=== PATIENT | male | born 1940 | race Caucasian/White ===

== ENCOUNTER 2017-03-04 07:30 | Inpatient (IN) | payer MEDICARE, BC ==
[~2017-03-04 07:30] MED LIST: Lactated Ringers 1,000 ML IV SCH; Lidocaine 1%/Sod Bicarbonate in NS 8.4% 1 ML Syringe IV PRN; Sodium Chloride 0.9% 10 ML Syringe FLUSH PRN
[2017-03-08] MEDS ORDERED: Sodium Chloride 0.9% 10 ML Syringe FLUSH PRN (00:01)
[2017-03-08] MEDS ORDERED: Lactated Ringers 1,000 ML IV SCH (00:01)
[2017-03-08] MEDS ORDERED: Lidocaine 1%/Sod Bicarbonate in NS 8.4% 1 ML Syringe IV PRN (00:01)
[2017-03-08] MEDS ORDERED: Morphine 2 MG/ML Syringe IVPUSH PRN (06:56)
[2017-03-08] MEDS ORDERED: diphenhydrAMINE 50 MG/ML SDV IVPUSH PRN (06:56)
[2017-03-08] MEDS ORDERED: Bisacodyl 5 MG Tab PO PRN (06:56)
[2017-03-08] MEDS ORDERED: Naloxone 0.4 MG/ML SDV IVPUSH PRN (06:56)
[2017-03-08] MEDS ORDERED: Ondansetron 4 MG/2 ML SDV IVPUSH PRN ×2 (06:56→15:26)
[2017-03-08] MEDS ORDERED: Sennosides 8.6 MG Tab PO PRN (06:56)
[2017-03-08] MEDS ORDERED: Docusate Sodium 100 MG Cap PO PRN (06:56)
[2017-03-08] MEDS ORDERED: Magnesium Hydroxide 400 MG/5 ML Susp 30 ML Cup PO PRN (06:56)
--- NOTE | 2017-03-08 12:26 | PCM.PREANE ---
Preanesthetic Assessment - Anesthesia/Transfusion/Family Hx Anesthesia History: Prior Anesthesia Without Reaction Family History of Anesthesia Reaction: No Transfusion History: No Prior Transfusion(s) - Review of Systems General: No Symptoms Pulmonary: No Symptoms Cardiovascular: No Symptoms Gastrointestinal: No Symptoms Neurological: Numbness (fingers carpal tunnel) Other: Reports: Diabetes (no meds boarderline) - Physical Assessment NPO Status Date: 03/07/17 NPO Status Time: 19:00 Pulse: 72 O2 Sat by Pulse Oximetry: 95 Respiratory Rate: 16 Blood Pressure: 150/70 Temperature: 36.7 C Vital Signs: Last Vital Signs Temp 36.7 C 03/08/17 10:45 Pulse 72 03/08/17 10:45 Resp 16 03/08/17 10:45 BP 150/70 H 03/08/17 10:45 Pulse Ox 95 03/08/17 10:45 Height: 1.63 m Weight: 70.987 kg ASA Class: 3 Mental Status: Alert & Oriented x3 Dentition: Reports: Dentures (lower), Missing Tooth/Teeth (top) Thyro-Mental Finger Breadths: 3 Mouth Opening Finger Breadths: 3 ROM/Head Extension: Limited/Partial (C2-7 2005 And L2-5 2008 And L1-2 2010 back surgery) Lungs: Clear to Auscultation, Normal Respiratory Effort Cardiovascular: Regular Rate, Regular Rhythm - Lab Values: on chart - Imaging/EKG Impressions: EKG Sinus Rhythm probable left atrial enlargement - Allergies Allergies/Adverse Reactions: Allergies Allergy/AdvReac Type Severity Reaction Status Date / Time doxycycline Allergy Edema Verified 03/08/17 11:34 Iodinated Contrast- Oral and Allergy Cannot Verified 03/08/17 11:34 IV Dye Remember Sulfa (Sulfonamide Allergy Rash Verified 03/08/17 11:34 Antibiotics) - Anesthesia Plan Pre-Op Medication Ordered: None - Acknowledgements Anesthesia Type Planned: Spinal Pt an Appropriate Candidate for the Planned Anesthesia: Yes Alternatives and Risks of Anesthesia Discussed w Pt/Guardian: Yes Pt/Guardian Understands and Agrees with Anesthesia Plan: Yes PreAnesthesia Questionnaire HEENT History: Reports: Cataract, Glaucoma Cardiovascular History: Reports: High Cholesterol, Hypertension, Other (See Below) Other Cardiovascular History: Mitral regurgitation, mitral stenosis, aortic valve sclerosis Respiratory History: Reports: COPD, Sleep Apnea Gastrointestinal History: Reports: GERD Genitourinary History: Reports: Chronic Renal Insuffiency, Other (See Below) Other Genitourinary History: CKD III, nocturia [employer]ER History: Reports: None Musculoskeletal History: Reports: Gout, Osteoarthritis, RA, Other (See Below) Other Musculoskeletal History: right hip pain Neurological History: Reports: None Psychiatric History: Reports: None Endocrine/Metabolic History: Reports: None Hematologic History: Reports: Anemia Immunologic History: Reports: None Oncologic (Cancer) History: Reports: None Dermatologic History: Reports: None - Past Surgical History HEENT Surgical History: Reports: Cataract Surgery, Naso-Sinus Surgery Cardiovascular Surgical History: Reports: None GI Surgical History: Reports: Other (See Below) Other GI Surgeries/Procedures: abdominal surgery Female Surgical History: Reports: None Male Surgical History: Reports: None Endocrine Surgical History: Reports: None Neurological Surgical History: Reports: C-Spine, Laminectomy, Other (See Below) Other Neurological Surgeries/Procedures: L1-L5 fusion, L2-L5 laminectomy, C2-C7 fusion Musculoskeletal Surgical History: Reports: Other (See Below) Other Musculoskeletal Surgeries/Procedures:: right total hip replacement Dermatological Surgical History: Reports: None - SUBSTANCE USE Smoking Status *Q: Former Smoker Second Hand Smoke Exposure: No Recreational Drug Use History: No - HOME MEDS Home Medications: Home Meds Acetaminophen/HYDROcodone [[place] 325-5 MG] 1 tab PO Q6H 03/05/17 [History] Allopurinol [Zyloprim] 100 mg PO DAILY 03/05/17 [History] Aspirin 81 mg PO DAILY 03/05/17 [History] Calcium Citrate/Vitamin D3 [Citracal + D Maximum Caplet] 2 tab PO DAILY [History] Diltiazem [Cardizem CD] 240 mg PO DAILY 03/05/17 [History] Ezetimibe [Zetia] 10 mg PO Q48H 03/05/17 [History] FLUoxetine [PROzac] 20 mg PO DAILY 03/05/17 [History] Furosemide [Lasix] 20 mg PO DAILY 03/05/17 [History] Krill Oil 500 mg PO DAILY 03/05/17 [History] Multivitamin [Zoo Chews] 1 tab PO DAILY 03/05/17 [History] Pantoprazole Sodium [Protonix] 40 mg PO DAILY 03/05/17 [History] Simvastatin [Zocor] 40 mg PO BEDTIME 03/05/17 [History] Tadalafil [Cialis] 10 mg PO ASDIRECTED PRN 03/05/17 [History] Tamsulosin HCl [Flomax] 0.4 mg PO TUFR 03/05/17 [History] Timolol [Betimol] 1 drop EYERT BEDTIME 03/05/17 [History] Tiotropium [Spiriva HandiHaler] 1 puff INH DAILY 03/05/17 [History] Ubidecarenone [Coq-10] 100 mg PO DAILY 03/05/17 [History] fentaNYL [Duragesic] 12 mcg TOP Q72H 03/05/17 [History] - CURRENT (IN HOUSE) MEDS Current Meds: Current Medications Bisacodyl (Dulcolax) 5 mg PO DAILY PRN PRN Reason: Constipation Diphenhydramine HCl (Benadryl) 25 mg IVPUSH Q4H PRN PRN Reason: Nausea Docusate Sodium (Colace) 100 mg PO BID PRN PRN Reason: Constipation Famotidine (Pepcid) 20 mg PO Q12H POLO Lactated Ringer's (Ringers, Lactated) 1,000 mls @ 125 mls/hr IV ASDIRECTED POLO Last Admin: 03/08/17 11:00 Dose: 125 mls/hr Cefazolin Sodium/Dextrose 2 gm (/ Premix) 50 mls @ 100 mls/hr IV Q8H [facility] Stop: 03/08/17 23:29 Lidocaine/Sodium Bicarbonate (Buffered Lidocaine 1% In Ns 8.4%) 0.25 ml IV ONETIME PRN PRN Reason: Prior to IV Start Last Admin: 03/08/17 10:59 Dose: 0.25 ml Magnesium Hydroxide (Milk Of Magnesia) 30 ml PO BID PRN PRN Reason: Constipation Morphine Sulfate (Morphine) 2 mg IVPUSH Q2H PRN PRN Reason: Breakthrough Pain Naloxone HCl (Narcan) 0.1 mg IVPUSH Q5M PRN PRN Reason: Oversedation Ondansetron HCl (Zofran) 4 mg IVPUSH Q6H PRN PRN Reason: Nausea/Vomiting Oxycodone/Acetaminophen (Percocet 325-5 Mg) 1 - 2 tab PO Q4H PRN PRN Reason: Pain Rivaroxaban (Xarelto) 10 mg PO DAILY [facility] Senna (Senna) 8.6 mg PO BID PRN PRN Reason: Constipation Sodium Chloride (Saline Flush) 10 ml FLUSH ASDIRECTED PRN PRN Reason: Keep Vein Open Discontinued Medications Morphine Sulfate 8 mg/Epinephrine HCl 0.3 mg/Cefuroxime Sodium 750 mg/Ketorolac Tromethamine 30 mg/Sodium Chloride 27.9 ml 0 mg .XX ONETIME ONE Stop: 03/08/17 11:46 Lactated Ringer's (Ringers, Lactated) 1,000 mls @ 125 mls/hr IV ASDIRECTED [facility] Lidocaine/Sodium Bicarbonate (Buffered Lidocaine 1% In Ns 8.4%) 0.25 ml IV ONETIME PRN PRN Reason: Prior to IV Start Sodium Chloride (Saline Flush) 10 ml FLUSH ASDIRECTED PRN PRN Reason: Keep Vein Open
[2017-03-08] MEDS ORDERED: Bupivacaine 0.25% 30 ML SDV ONE (12:30)
[2017-03-08] MEDS ORDERED: Iodine/Sodium Iodide 2% Tincture 30 ML Bottle ONE (12:30)
[2017-03-08] MEDS ORDERED: Vancomycin 1 GM SDV ONE (12:30)
[2017-03-08] MEDS ORDERED: ceFAZolin 1 GM Vial ONE ×2 (12:30→12:59)
[2017-03-08] MEDS ORDERED: fentaNYL 100 MCG/2 ML SDV ONE (12:58)
[2017-03-08] MEDS ORDERED: Ondansetron 4 MG/2 ML SDV ONE (12:58)
[2017-03-08] MEDS ORDERED: Propofol 200 MG/20 ML SDV ONE ×2 (12:58→14:41)
[2017-03-08] MEDS ORDERED: Lidocaine 1% 4 ML ONE (12:59)
[2017-03-08] MEDS ORDERED: FLU Vacc TS 2017-18 (65yr UP)/PF 180 MCG/0.5 ML Syringe IM ONE (13:00)
[2017-03-08] MEDS ORDERED: Morphine PF 10 MG/10 ML SDV ONE (13:32)
[2017-03-08] MEDS ORDERED: Lactated Ringers 1,000 ML ONE ×2 (13:56→15:16)
[2017-03-08] MEDS ORDERED: Phenylephrine 1% 10 MG/ML SDV ONE (14:31)
[2017-03-08] MEDS: Morphine 8 MG, EPINEPHrine 0.3 MG, Cefuroxime 750 MG, Ketorolac 30 MG, Sodium Chloride ... ONE ×10 (14:49→20:11)
[2017-03-08] MEDS ORDERED: HYDROmorphone 0.5 MG/0.5 ML Syringe IVPUSH PRN (15:26)
[2017-03-08] MEDS ORDERED: fentaNYL 100 MCG/2 ML SDV IVPUSH PRN (15:26)
--- NOTE | 2017-03-08 15:26 | PCM.POSTAN ---
POST ANESTHESIA ASSESSMENT - MENTAL STATUS Mental Status: Alert, Oriented - VITAL SIGNS Pulse Rate: 72 SaO2: 97 Resp Rate: 16 Blood Pressure: 93/63 Temperature: 36.2 C - RESPIRATORY Respiratory Status: Respiratory Rate WNL, Airway Patent, O2 Saturation Stable, Supplemental Oxygen - CARDIOVASCULAR CV Status: Pulse Rate WNL, Blood Pressure Stable - GASTROINTESTINAL GI Status: No Symptoms - PAIN Pain Score: 0 - POST OP HYDRATION Hydration Status: Adequate & Stable
[2017-03-08] MEDS ORDERED: fentaNYL 12 MCG/HR Transdermal Patch TOP SCH (15:30)
[2017-03-08] MEDS ORDERED: Ezetimibe 10 MG Tab PO SCH (15:30)
--- NOTE | 2017-03-08 17:19 | PCM.OPNOTE ---
- General Post-Op/Procedure Note Date of Surgery/Procedure: 03/08/17 Operative Procedure(s): left total hip arthroplasty Pre Op Diagnosis: left hip osteoarthrosis Post-Op Diagnosis: Same Anesthesia Technique: Local, MAC, Spinal Primary Surgeon: Naif Carvalho Anesthesia Provider: Martha So Commercial Account Officer: Uzma Lagos Commercial Account Officer: Elizabeth Morin EBL in mLs: 150 Complications: None Condition: Good Free Text/Narrative:: Intake & Output 03/08/17 03/08/17 03/08/17 06:59 14:59 22:59 Intake Total 100 Output Total 390 Balance -290 54 cup 42mdm 28+0 size 4 stem
--- NOTE | 2017-03-08 18:25 | PCM.CONS ---
H&P History of Present Illness - General Date of Service: 03/08/17 Admit Problem/Dx: Admission Diagnosis/Problem Admission Diagnosis/Problem Osteoarthritis of hip Source of Information: Patient, Family, Old Records, Provider, RN History Limitations: Reports: No Limitations - History of Present Illness Initial Comments - Free Text/Narative: Antonino Colunga is a 76 yo male pt. of Dr. Carvalho who was admitted today, post-op day 0, for left PETER. Hospitalist medicine was consulted for post-operative medical management. At this time the patient is resting comfortably and is pain free. He reports that his legs are both somewhat numb still. He denies any chest pain, shortness of breath, palpitations, nausea or vomiting. He carries a history of: abdominal bruit, anemia with a Hgb of 12.4 om clinic, COPD, GERD, glaucoma, gout, HLD, HTN, nocturia, mitral regurgitation, mitral stenosis, aortic valve sclerosis, CKD stage III with an eGFR of 38 in clinic, sleep apnea , osteoarthritis, RA, and multiple spinal fusions and laminectomies. He reports he has been a borderline diabetic and his A1c was 5.8 in clinic. He is a former smoker. He is a full code. His primary care provider is Dr. Laboy. Left Hip Pain Score (Numeric/FACES): 0 - Related Data Allergies/Adverse Reactions: Allergies Allergy/AdvReac Type Severity Reaction Status Date / Time doxycycline Allergy Edema Verified 03/08/17 11:34 Iodinated Contrast- Oral and Allergy Cannot Verified 03/08/17 11:34 IV Dye Remember Sulfa (Sulfonamide Allergy Rash Verified 03/08/17 11:34 Antibiotics) Home Medications: Home Meds Acetaminophen/HYDROcodone [[place] 325-5 MG] 1 tab PO Q6H 03/05/17 [History] Allopurinol [Zyloprim] 100 mg PO DAILY 03/05/17 [History] Aspirin 81 mg PO DAILY 03/05/17 [History] Calcium Citrate/Vitamin D3 [Citracal + D Maximum Caplet] 2 tab PO DAILY [History] Diltiazem [Cardizem CD] 240 mg PO DAILY 03/05/17 [History] Ezetimibe [Zetia] 10 mg PO Q48H 03/05/17 [History] FLUoxetine [PROzac] 20 mg PO DAILY 03/05/17 [History] Furosemide [Lasix] 20 mg PO DAILY 03/05/17 [History] Krill Oil 500 mg PO DAILY 03/05/17 [History] Multivitamin [Zoo Chews] 1 tab PO DAILY 03/05/17 [History] Pantoprazole Sodium [Protonix] 40 mg PO DAILY 03/05/17 [History] Simvastatin [Zocor] 40 mg PO BEDTIME 03/05/17 [History] Tadalafil [Cialis] 10 mg PO ASDIRECTED PRN 03/05/17 [History] Tamsulosin HCl [Flomax] 0.4 mg PO TUFR 03/05/17 [History] Timolol [Betimol] 1 drop EARRT DAILY 03/05/17 [History] Tiotropium [Spiriva HandiHaler] 1 puff INH DAILY 03/05/17 [History] Ubidecarenone [Coq-10] 100 mg PO DAILY 03/05/17 [History] fentaNYL [Duragesic] 12 mcg TOP Q72H 03/05/17 [History] Past Medical History HEENT History: Reports: Cataract, Glaucoma Cardiovascular History: Reports: High Cholesterol, Hypertension, Other (See Below) Other Cardiovascular History: Mitral regurgitation, mitral stenosis, aortic valve sclerosis Respiratory History: Reports: COPD, Sleep Apnea Gastrointestinal History: Reports: GERD Genitourinary History: Reports: Chronic Renal Insuffiency, Other (See Below) Other Genitourinary History: CKD III, nocturia [employer] History: Reports: None Musculoskeletal History: Reports: Gout, Osteoarthritis, RA, Other (See Below) Other Musculoskeletal History: right hip pain Neurological History: Reports: None Psychiatric History: Reports: None Endocrine/Metabolic History: Reports: None Hematologic History: Reports: Anemia Immunologic History: Reports: None Oncologic (Cancer) History: Reports: None Dermatologic History: Reports: None - Past Surgical History HEENT Surgical History: Reports: Cataract Surgery, Naso-Sinus Surgery Cardiovascular Surgical History: Reports: None GI Surgical History: Reports: Other (See Below) Other GI Surgeries/Procedures: abdominal surgery Female Surgical History: Reports: None Male Surgical History: Reports: None Endocrine Surgical History: Reports: None Neurological Surgical History: Reports: C-Spine, Laminectomy, Other (See Below) Other Neurological Surgeries/Procedures: L1-L5 fusion, L2-L5 laminectomy, C2-C7 fusion Musculoskeletal Surgical History: Reports: Other (See Below) Other Musculoskeletal Surgeries/Procedures:: right total hip replacement Dermatological Surgical History: Reports: None Social & Family History - Tobacco Use Smoking Status *Q: Former Smoker Used Tobacco, but Quit: No Month Tobacco Last Used: 1979 Second Hand Smoke Exposure: No - Caffeine Use Caffeine Use: Reports: Coffee - Alcohol Use Days Per Week of Alcohol Use: 4 Number of Drinks Per Day: 2 Total Drinks Per Week: 8 - Recreational Drug Use Recreational Drug Use: No H&P Review of Systems - Review of Systems: Review Of Systems: See Below General: Reports: No Symptoms HEENT: Reports: No Symptoms Pulmonary: Reports: No Symptoms Cardiovascular: Reports: No Symptoms Gastrointestinal: Reports: No Symptoms Genitourinary: Reports: No Symptoms Musculoskeletal: Reports: Hand Pain (Bilateral - chronic ), Leg Pain (left hip with movement ). Denies: Neck Pain, Shoulder Pain, Arm Pain, Back Pain Skin: Reports: No Symptoms Psychiatric: Reports: No Symptoms Neurological: Reports: Numbness (feet ), Tingling (feet). Denies: Confusion, Dizziness, Headache Hematologic/Lymphatic: Reports: Anemia (Chronic ) Immunologic: Reports: No Symptoms Exam - Exam Exam: See Below - Vital Signs Vital Signs: Last Vital Signs Temp 97.7 F 03/08/17 16:00 Pulse 72 03/08/17 15:26 Resp 15 03/08/17 16:15 BP 134/72 03/08/17 16:15 Pulse Ox 98 03/08/17 16:40 Weight: 156 lb 8 oz - Exam Quality Assessment: Supplemental Oxygen, DVT Prophylaxis General: Alert, Oriented, Cooperative HEENT: Conjunctiva Clear, EACs Clear, Hearing Intact, Mucosa Moist & [place], Nares Patent, Posterior Pharynx Clear, Pupils Equal, Pupils Reactive Neck: Supple, Trachea Midline. No: JVD Lungs: Clear to Auscultation, Normal Respiratory Effort Cardiovascular: Regular Rate, Regular Rhythm GI/Abdominal Exam: Normal Bowel Sounds, Soft, Non-Tender, No Organomegaly, No Distention, No Mass, Pelvis Stable (Male) Exam: Deferred Rectal (Males) Exam: Deferred Back Exam: Normal Inspection, Decreased Range of Motion Extremities: No Pedal Edema, Normal Capillary Refill, Other Peripheral Pulses: 1+: Posterior Tibial (L), Posterior Tibial (R), Dorsalis Pedis (L), Dorsalis Pedis (R), 2+: Radial (L), Radial (R) Skin: Warm, Dry, Intact Neurological: Cranial Nerves Intact (grossly ) Neuro Extensive - Mental Status: Alert, Oriented x3, Normal Mood/Affect, Normal Cognition, Memory Intact Neuro Extensive - Motor, Sensory, Reflexes: CN II-XII Intact (grossly ) Psychiatric: Alert, Normal Affect, Normal Mood Physical Exam Comments:: patient examined while lying in bed. He is on 1 L via nasal cannula with good saturation. Vital signs have been stable. - Patient Data Lab Results Last 24 hrs: Laboratory Results - last 24 hr 03/08/17 Range/Units 12:34 Blood Type A NEGATIVE Gel Antibody Screen Negative Consult PN Assessment/Plan POD#: 0 Procedures: Procedures DXA BONE DENSITY AXIAL (02/22/17) MR-STAPH DNA AMP PROBE (02/19/17) MRI JOINT UPR EXTREM W/DYE (02/08/14) NEEDLE LOCALIZATION BY XRAY (02/08/14) URINE CULTURE/COLONY COUNT (01/24/15) (1) S/P total hip arthroplasty SNOMED Code(s): 841022577245 Code(s): Z96.649 - PRESENCE OF UNSPECIFIED ARTIFICIAL HIP JOINT Priority: High Current Visit: Yes Qualifiers: Laterality: left Qualified Code(s): Z96.642 - Presence of left artificial hip joint (2) Abdominal bruit SNOMED Code(s): 005492289 Code(s): R09.89 - OTH SYMPTOMS AND SIGNS INVOLVING THE CIRC AND RESP SYSTEMS Priority: Low Current Visit: Yes (3) Anemia SNOMED Code(s): 413707173 Code(s): D64.9 - ANEMIA, UNSPECIFIED Priority: Low Current Visit: Yes Qualifiers: Anemia type: unspecified type Qualified Code(s): D64.9 - Anemia, unspecified (4) Nocturia SNOMED Code(s): 475299404 Code(s): R35.1 - NOCTURIA Priority: Low Current Visit: Yes (5) COPD (chronic obstructive pulmonary disease) SNOMED Code(s): 15435330 Code(s): J44.9 - CHRONIC OBSTRUCTIVE PULMONARY DISEASE, UNSPECIFIED Priority: Low Current Visit: Yes Qualifiers: COPD type: unspecified COPD Qualified Code(s): J44.9 - Chronic obstructive pulmonary disease, unspecified (6) GERD (gastroesophageal reflux disease) SNOMED Code(s): 540681851 Code(s): K21.9 - GASTRO-ESOPHAGEAL REFLUX DISEASE WITHOUT ESOPHAGITIS Priority: Low Current Visit: Yes Qualifiers: Esophagitis presence: esophagitis presence not specified Qualified Code(s) : K21.9 - Gastro-esophageal reflux disease without esophagitis (7) Glaucoma SNOMED Code(s): 93506176 Code(s): H40.9 - UNSPECIFIED GLAUCOMA Priority: Low Current Visit: No Qualifiers: Glaucoma type: unspecified Laterality: unspecified laterality Qualified Code(s): H40.9 - Unspecified glaucoma (8) Gout SNOMED Code(s): 84305939 Code(s): M10.9 - GOUT, UNSPECIFIED Priority: Low Current Visit: No Qualifiers: Gout site: unspecified site Gout etiology: unspecified cause Chronicity: unspecified Qualified Code(s): M10.9 - Gout, unspecified (9) HLD (hyperlipidemia) SNOMED Code(s): 34336623 Code(s): E78.5 - HYPERLIPIDEMIA, UNSPECIFIED Priority: Low Current Visit : No Qualifiers: Hyperlipidemia type: pure hypercholesterolemia Qualified Code(s): E78.00 - Pure hypercholesterolemia, unspecified; E78.0 - Pure hypercholesterolemia (10) HTN (hypertension) SNOMED Code(s): 02216584 Code(s): I10 - ESSENTIAL (PRIMARY) HYPERTENSION Priority: Medium Current Visit: Yes Qualifiers: Hypertension type: essential hypertension Qualified Code(s): I10 - Essential (primary) hypertension (11) CKD (chronic kidney disease) stage 3, GFR 30-59 ml/min SNOMED Code(s): 548029276 Code(s): N18.3 - CHRONIC KIDNEY DISEASE, STAGE 3 (MODERATE) Priority: Medium Current Visit: Yes (12) Mitral regurgitation SNOMED Code(s): 00678924 Code(s): I34.0 - NONRHEUMATIC MITRAL (VALVE) INSUFFICIENCY Priority: Low Current Visit: Yes Qualifiers: Cardiac valve disease etiology: etiology unspecified Qualified Code(s): I34.0 - Nonrheumatic mitral (valve) insufficiency (13) Mitral stenosis SNOMED Code(s): 87777624 Code(s): I05.0 - RHEUMATIC MITRAL STENOSIS Priority: Low Current Visit: Yes Qualifiers: Cardiac valve disease etiology: etiology unspecified Qualified Code(s): I05.0 - Rheumatic mitral stenosis (14) Aortic valve sclerosis SNOMED Code(s): 97572390 Code(s): I35.8 - OTHER NONRHEUMATIC AORTIC VALVE DISORDERS Priority: Low Current Visit: Yes Problem List Initiated/Reviewed/Updated: Yes Plan: I/P: Acute: S/P left PETER post-operative day 0 -DVT and pain management per primary team -IS/RT -PT/OT -Monitor oxygen saturations -O2 as needed -Vital signs stable Osteoarthritis of the hip -Pain management as above Chronic: abdominal bruit anemia with a Hgb of 12.4 in clinic COPD GERD glaucoma gout HLD HTN nocturia mitral regurgitation mitral stenosis aortic valve sclerosis CKD stage III with an eGFR of 38 in clinic sleep apnea osteoarthritis RA multiple spinal fusions multiple laminectomies Plan: CM/SW for discharge planning Other orders as listed above GI prophylaxis Home medications as indicated Routine AM labs He is a full code. His PCP is Dr. Laboy Thank you for allowing us to participate in the care of this patient! Requesting Provider: Dr. Carvalho Date Consult Requested: 03/08/17 Reason for Consult: Post-operative medical management Patient History Reviewed: Yes Admission H&P Reviewed: Yes Time Spent (in minutes): 45
--- NOTE | 2017-03-08 19:37 | CR ---
Pelvis and left hip: AP view of the pelvis was obtained as well as lateral view of the left hip. Comparison: No previous hip or pelvis study. Previous lumbar spine surgery is partially visualized. Bilateral hip prosthesis are noted which on the left side has been recently placed. Slight vacuum phenomena is seen within the left sacroiliac joint. Mild joint space narrowing is seen within the right sacroiliac joint. Underlying bony structures are intact. Prosthesis appear aligned. Impression: 1. Satisfactory appearance of a recently placed left hip prosthesis. 2. Other incidental findings as noted above. Diagnostic code #2
[2017-03-08] MEDS: Acetaminophen/oxyCODONE 325-5 MG Tab PO PRN (20:40)
[2017-03-08] MEDS ORDERED: Famotidine 20 MG Tab PO SCH (21:00)
[2017-03-08] MEDS ORDERED: Simvastatin 40 MG Tab PO SCH (21:00)
[2017-03-08] MEDS: ceFAZolin 2 GM in Premix Bag 1 BAG IV SCH (22:47)
[2017-03-09] MEDS: ceFAZolin 2 GM in Premix Bag 1 BAG IV SCH ×2 (05:28→12:30)
[2017-03-09] MEDS: Acetaminophen/oxyCODONE 325-5 MG Tab PO PRN ×3 (05:55→15:17)
[2017-03-09] MEDS ORDERED: Tiotropium Inhaler 18 MCG Inhalation Powder Cap Kit of 5 INH SCH (08:00)
[2017-03-09] MEDS ORDERED: Enoxaparin 30 MG/0.3 ML Syringe SUBCUT SCH (09:00)
[2017-03-09] MEDS ORDERED: Rivaroxaban 10 MG Tab PO SCH (09:00)
[2017-03-09] MEDS ORDERED: Ezetimibe 10 MG Tab PO SCH (09:00)
[2017-03-09] MEDS ORDERED: Allopurinol 100 MG Tab PO SCH (09:00)
[2017-03-09] MEDS ORDERED: Aspirin 81 MG Tab.Chew PO SCH (09:00)
[2017-03-09] MEDS ORDERED: Pantoprazole 40 MG Tab.CR PO SCH (09:00)
[2017-03-09] MEDS ORDERED: Furosemide 20 MG Tab PO SCH (09:00)
[2017-03-09] MEDS ORDERED: Tamsulosin 0.4 MG Cap.ER PO SCH (09:00)
[2017-03-09] MEDS ORDERED: Famotidine 20 MG Tab PO SCH (09:00)
[2017-03-09] MEDS ORDERED: FLUoxetine 20 MG Cap PO SCH (09:00)
[2017-03-09] MEDS ORDERED: Calcium Carbonate/Vitamin D3 1500 MG-200 Units Tab PO SCH (09:00)
[2017-03-09] MEDS ORDERED: Diltiazem 240 MG Cap.ER PO SCH (09:00)
--- NOTE | 2017-03-09 09:52 | PCM48HPAN ---
Post Anesthesia Note - EVALUATION WITHIN 48HRS OF ANESTHETIC Vital Signs in Normal Range: Yes Patient Participated in Evaluation: Yes Respiratory Function Stable: Yes Airway Patent: Yes Cardiovascular Function Stable: Yes Hydration Status Stable: Yes Pain Control Satisfactory: Yes Nausea and Vomiting Control Satisfactory: Yes Mental Status Recovered: Yes - COMMENTS/OBSERVATIONS Free Text/Narrative:: Up walking today. Denies headache. Denies back pain. Denies numbness and/or tingling in her legs. Voiding without problem. No further questions at this time. No complications noted.
--- NOTE | 2017-03-09 15:09 | PCM.CONSN ---
- General Info Date of Service: 03/09/17 Admission Dx/Problem (Free Text): Admission Diagnosis/Problem Admission Diagnosis/Problem Osteoarthritis of hip Subjective Update: Follow Up Functional Status: Reports: Pain Controlled, Tolerating Diet, Ambulating, Urinating. Denies: New Symptoms - Review of Systems General: Denies: Fever, Weakness, Fatigue, Malaise, Chills HEENT: Reports: No Symptoms Pulmonary: Denies: Shortness of Breath Cardiovascular: Denies: Chest Pain Gastrointestinal: Denies: Abdominal Pain, Nausea, Vomiting Genitourinary: Reports: No Symptoms Musculoskeletal: Reports: No Symptoms Skin: Reports: No Symptoms Neurological: Reports: Gait Disturbance. Denies: Confusion, Difficulty Walking , Weakness Psychiatric: Denies: Depression, Anxiety, Agitation, Hallucinations Systems Review Comment:: No significant overnight or acute issues. His Pain is controlled. He has no new complaints. - Patient Data Vitals - Most Recent: Last Vital Signs Temp 36.9 C 03/09/17 12:29 Pulse 103 H 03/09/17 12:29 Resp 20 03/09/17 12:29 BP 146/67 H 03/09/17 12:29 Pulse Ox 92 L 03/09/17 12:29 Weight - Most Recent: 70.987 kg I&O - Last 24 Hours: Intake & Output 03/09/17 03/09/17 03/09/17 06:59 14:59 22:59 Intake Total 600 120 Balance 600 120 Lab Results Last 24 Hours: Laboratory Results - last 24 hr 03/09/17 03/09/17 Range/Units 05:45 05:45 WBC 10.61 H (4.23-9.07) K/mm3 RBC 3.44 L (4.63-6.08) M/mm3 Hgb 10.5 L (13.7-17.5) gm/L Hct 32.6 L (40.1-51.0) % MCV 94.8 H (79.0-92.2) fl MCH 30.5 (25.7-32.2) pg MCHC 32.2 (32.2-35.5) g/dl RDW Std Deviation 43.5 (35.1-43.9) fL Plt Count 210 (163-337) K/mm3 MPV 10.4 (9.4-12.3) fl Sodium 138 (136-145) mEq/L Potassium 5.3 H (3.5-5.1) mEq/L Chloride 102 (98-107) mEq/L Carbon Dioxide 27 (21-32) mEq/L Anion Gap 14.3 (5-15) BUN 33 H (7-18) mg/dL Creatinine 2.5 H (0.7-1.3) mg/dL Est Cr Clr Drug Dosing 21.05 mL/min Estimated GFR (MDRD) 25 (>60) mL/min BUN/Creatinine Ratio 13.2 L (14-18) Glucose 135 H (83-115) mg/dL Calcium 8.6 (8.5-10.1) mg/dL Total Bilirubin 0.3 (0.2-1.0) mg/dL AST 24 (15-37) U/L ALT 16 (16-63) U/L Alkaline Phosphatase 91 (46-116) U/L Total Protein 6.4 (6.4-8.2) g/dl Albumin 3.2 L (3.4-5.0) g/dl Globulin 3.2 gm/dL Albumin/Globulin Ratio 1.0 (1-2) Med Orders - Current: Current Medications Allopurinol (Zyloprim) 100 mg PO DAILY [facility] Last Admin: 03/09/17 08:55 Dose: 100 mg Aspirin (Aspirin) 81 mg PO DAILY [facility] Last Admin: 03/09/17 08:54 Dose: 81 mg Bisacodyl (Dulcolax) 5 mg PO DAILY PRN PRN Reason: Constipation Calcium Carbonate (Calcium Carbonate/Vitamin D 1500 Mg-200 Unit) 2 tab PO DAILY [facility] Last Admin: 03/09/17 08:55 Dose: 2 tab Diltiazem HCl (Dilacor Xr) 240 mg PO DAILY [facility] Last Admin: 03/09/17 08:55 Dose: 240 mg Diphenhydramine HCl (Benadryl) 25 mg IVPUSH Q4H PRN PRN Reason: Nausea Docusate Sodium (Colace) 100 mg PO BID PRN PRN Reason: Constipation Ezetimibe (Zetia) 10 mg PO Q48H [facility] Enoxaparin Sodium (Lovenox) 30 mg SUBCUT DAILY [facility] Fentanyl (Duragesic) 12 mcg TOP Q72H [facility] Fluoxetine HCl (Prozac) 20 mg PO DAILY [facility] Last Admin: 03/09/17 08:54 Dose: 20 mg Furosemide (Lasix) 20 mg PO DAILY [facility] Last Admin: 03/09/17 08:55 Dose: 20 mg Lactated Ringer's (Ringers, Lactated) 1,000 mls @ 125 mls/hr IV ASDIRECTED [facility] Last Admin: 03/08/17 11:00 Dose: 125 mls/hr Latanoprost (Xalatan 0.005% Ophth Soln) 0 ml EYERT BEDTIME POLO Magnesium Hydroxide (Milk Of Magnesia) 30 ml PO BID PRN PRN Reason: Constipation Morphine Sulfate (Morphine) 2 mg IVPUSH Q2H PRN PRN Reason: Breakthrough Pain Naloxone HCl (Narcan) 0.1 mg IVPUSH Q5M PRN PRN Reason: Oversedation Ondansetron HCl (Zofran) 4 mg IVPUSH Q6H PRN PRN Reason: Nausea/Vomiting Oxycodone/Acetaminophen (Percocet 325-5 Mg) 1 - 2 tab PO Q4H PRN PRN Reason: Pain Last Admin: 03/09/17 09:44 Dose: 2 tab Pantoprazole Sodium (Protonix) 40 mg PO DAILY [facility] Last Admin: 03/09/17 09:05 Dose: Not Given Ubidecarenone 100 Mg 0 each PO DAILY [facility] Last Admin: 03/09/17 09:06 Dose: Not Given Senna (Senna) 8.6 mg PO BID PRN PRN Reason: Constipation Simvastatin (Zocor) 40 mg PO BEDTIME [facility] Last Admin: 03/08/17 20:40 Dose: 40 mg Sodium Chloride (Saline Flush) 10 ml FLUSH ASDIRECTED PRN PRN Reason: Keep Vein Open Tamsulosin HCl (Flomax) 0.4 mg PO TuFr@0900 [facility] Last Admin: 03/09/17 08:54 Dose: 0.4 mg Timolol Maleate (Timoptic 0.5% Ophth Soln) 0 ml EYERT BEDTIME POLO Tiotropium [place] (Spiriva Handihaler) 18 mcg INH DAILYRT [facility] Last Admin: 03/09/17 08:39 Dose: 1 puff Discontinued Medications Bupivacaine HCl (Marcaine 0.25%) Confirm Administered Dose 30 ml .ROUTE .[facility] ONE Stop: 03/08/17 12:31 Last Admin: 03/08/17 14:51 Dose: 30 ml Cefazolin Sodium (Ancef) Confirm Administered Dose 2 gm .ROUTE .STK-MED ONE Stop: 03/08/17 12:31 Cefazolin Sodium (Ancef) Confirm Administered Dose 2 gm .ROUTE .[facility] ONE Stop: 03/08/17 13:00 Last Admin: 03/08/17 14:44 Dose: 2 gm Morphine Sulfate 8 mg/Epinephrine HCl 0.3 mg/Cefuroxime Sodium 750 mg/Ketorolac Tromethamine 30 mg/Sodium Chloride 27.9 ml 0 mg .XX ONETIME ONE Stop: 03/08/17 11:46 Last Admin: 03/08/17 20:11 Dose: Not Given Ezetimibe (Zetia) 10 mg PO Q48H [facility] Famotidine (Pepcid) 20 mg PO Q12H [facility] Last Admin: 03/08/17 20:40 Dose: 20 mg Famotidine (Pepcid) 20 mg PO DAILY [facility] Last Admin: 03/09/17 08:54 Dose: 20 mg Fentanyl (Sublimaze) Confirm Administered Dose 100 mcg .ROUTE .[facility] Stop: 03/08/17 12:59 Fentanyl (Duragesic) 12 mcg TOP Q72H [facility] Fentanyl (Sublimaze) 50 mcg IVPUSH Q5M PRN PRN Reason: pain Hydromorphone HCl (Dilaudid) 0.5 mg IVPUSH Q15M PRN PRN Reason: Pain (severe 7-10) Lactated Ringer's (Ringers, Lactated) 1,000 mls @ 125 mls/hr IV ASDIRECTED [facility] Cefazolin Sodium/Dextrose 2 gm (/ Premix) 50 mls @ 100 mls/hr IV Q8H [facility] Stop: 03/09/17 12:59 Last Admin: 03/09/17 05:28 Dose: 100 mls/hr Lidocaine HCl (Xylocaine-Mpf 1%) Confirm Administered Dose 4 mls @ as directed .ROUTE .[facility] ONE Stop: 03/08/17 13:00 Lactated Ringer's (Ringers, Lactated) Confirm Administered Dose 1,000 mls @ as directed .ROUTE .[facility] ONE Stop: 03/08/17 13:57 Lactated Ringer's (Ringers, Lactated) Confirm Administered Dose 1,000 mls @ as directed .ROUTE .[facility]-MED ONE Stop: 03/08/17 15:17 Influenza Virus Vaccine (Pharmacy To Dose - Influenza Vaccine) 1 each IM ONETIME ONE Stop: 03/08/17 12:45 Last Admin: 03/08/17 17:15 Dose: Not Given Influenza Virus Vaccine (Fluzone High-Dose 2016-) 180 mcg IM .ONCE ONE Stop: 03/08/17 13:01 Last Admin: 03/08/17 17:15 Dose: Not Given Iodine (Iodine 2% Mild Tincture) Confirm Administered Dose 30 ml .ROUTE .STK- MED ONE Stop: 03/08/17 12:31 Last Admin: 03/08/17 14:40 Dose: 18 ml Lidocaine/Sodium Bicarbonate (Buffered Lidocaine 1% In Ns 8.4%) 0.25 ml IV ONETIME PRN PRN Reason: Prior to IV Start Lidocaine/Sodium Bicarbonate (Buffered Lidocaine 1% In Ns 8.4%) 0.25 ml IV ONETIME PRN PRN Reason: Prior to IV Start Last Admin: 03/08/17 10:59 Dose: 0.25 ml Morphine Sulfate (Duramorph Pf) Confirm Administered Dose 10 mg .ROUTE .STK-MED ONE Stop: 03/08/17 13:33 Ondansetron HCl (Zofran) Confirm Administered Dose 4 mg .ROUTE .STK-MED ONE Stop: 03/08/17 12:59 Ondansetron HCl (Zofran) 4 mg IVPUSH ONETIME PRN PRN Reason: Nausea/Vomiting Phenylephrine HCl (Elias-Synephrine) Confirm Administered Dose 10 mg .ROUTE .STK- MED ONE Stop: 03/08/17 14:32 Propofol (Diprivan 20 Ml) Confirm Administered Dose 200 mg .ROUTE .STK-MED ONE Stop: 03/08/17 12:59 Propofol (Diprivan 20 Ml) Confirm Administered Dose 200 mg .ROUTE .STK-MED ONE Stop: 03/08/17 14:42 Rivaroxaban (Xarelto) 10 mg PO DAILY [facility] Sodium Chloride (Saline Flush) 10 ml FLUSH ASDIRECTED PRN PRN Reason: Keep Vein Open Tranexamic Acid (Cyklokapron) Confirm Administered Dose 1,000 mg .ROUTE .STK- MED ONE Stop: 03/08/17 12:31 Last Admin: 03/08/17 14:52 Dose: 1,000 mg Vancomycin HCl (Vancomycin) Confirm Administered Dose 1 gm .ROUTE .K-MED ONE Stop: 03/08/17 12:31 Last Admin: 03/08/17 14:54 Dose: 1 gm - Exam Quality Assessment: Supplemental Oxygen General: Alert, Oriented, Cooperative, No Acute Distress HEENT: Pupils Equal, Pupils Reactive, EOMI, Mucous Membr. Moist/[place] Neck: Supple, Trachea Midline, No Thyromegaly Lungs: Clear to Auscultation, Normal Respiratory Effort Cardiovascular: Regular Rate, Regular Rhythm GI/Abdominal Exam: Normal Bowel Sounds, Soft, No Organomegaly, No Distention (Male) Exam: Deferred Back Exam: Normal Inspection, Decreased Range of Motion Extremities: Normal Inspection, Non-Tender, No Pedal Edema, Normal Capillary Refill, Limited Range of Motion Peripheral Pulses: 2+: Dorsalis Pedis (L), Dorsalis Pedis (R) Skin: Warm, Dry, Intact Neurological: No New Focal Deficit Psy/Mental Status: Alert, Normal Affect, Normal Mood Consult PN Assessment/Plan POD#: 1 Procedures: Procedures DXA BONE DENSITY AXIAL (02/22/17) MR-STAPH DNA AMP PROBE (02/19/17) MRI JOINT UPR EXTREM W/DYE (02/08/14) NEEDLE LOCALIZATION BY XRAY (02/08/14) URINE CULTURE/COLONY COUNT (01/24/15) Problem List Initiated/Reviewed/Updated: Yes My Orders Last 24 Hours: My Active Orders 03/09/17 09:00 Ezetimibe [Zetia] 10 mg PO Q48H 03/09/17 21:00 Latanoprost [Xalatan 0.005% Ophth Soln] 0 ml EYERT BEDTIME 03/11/17 07:00 fentaNYL [Duragesic] 12 mcg TOP Q72H Plan: Assessment/Plan: Acute: S/P left PETER post-operative day 1 - DVT and pain management per primary team - Continue IS/RT/PT/OT - Monitor oxygen saturations - O2 as needed - Vital signs stable Osteoarthritis of the hip - Pain management as above Chronic: abdominal bruit anemia with a Hgb of 12.4 in clinic COPD GERD glaucoma gout HLD HTN nocturia mitral regurgitation mitral stenosis aortic valve sclerosis CKD stage III with an eGFR of 38 in clinic sleep apnea osteoarthritis RA multiple spinal fusions multiple laminectomies Plan: Patient is clinically stable CM/SW for discharge planning Other orders as listed above GI prophylaxis Home medications as indicated Routine AM labs He is a full code. His PCP is Dr. Laboy From Hospitalist stand point, patient is doing relatively well. We have no additional recommendations but to continue current treatment. We are now signing off his case, please feel free to re-consult us if your still need further help. Again, thank you for allowing us to participate in the management of this patient.
[2017-03-09] MEDS ORDERED: Pneumococcal 13-Valent Conjugate Vaccine 0.5 ML Syringe IM ONE (15:33)
[2017-03-09] MEDS ORDERED: FLU Vacc TS 2017-18 (65yr UP)/PF 180 MCG/0.5 ML Syringe IM ONE (16:12)
[2017-03-09] MEDS ORDERED: Non-Formulary Medication 1 Each (Travoprost [Travatan Z] 1 DROP) EYERT SCH (21:00)
[2017-03-09] MEDS ORDERED: Latanoprost 0.005% Ophth Soln 2.5 ML Bottle EYERT SCH (21:00)
[2017-03-09] MEDS ORDERED: Timolol Maleate 0.5% Ophth Soln 5 ML Bottle EYERT SCH (21:00)
--- NOTE | 2017-03-10 10:23 | PCM.SURGPN ---
- General Info Date of Service: 03/09/17 POD#: 1 Functional Status: Reports: Pain Controlled, Tolerating Diet, Ambulating, Urinating, Incentive Spirometry - Review of Systems Musculoskeletal: Reports: Other (The pt feels prepared for discharge to home with his .) - Patient Data Vitals - Most Recent: Last Vital Signs Temp 98.4 F 03/09/17 12:29 Pulse 103 H 03/09/17 12:29 Resp 20 03/09/17 12:29 BP 146/67 H 03/09/17 12:29 Pulse Ox 92 L 03/09/17 12:29 Weight - Most Recent: 156 lb 8 oz I&O - Last 24 Hours: Intake & Output 03/09/17 03/10/17 03/10/17 22:59 06:59 14:59 Intake Total 210 Balance 210 Med Orders - Current: Current Medications Discontinued Medications Allopurinol (Zyloprim) 100 mg PO DAILY [facility] Last Admin: 03/09/17 08:55 Dose: 100 mg Aspirin (Aspirin) 81 mg PO DAILY [facility] Last Admin: 03/09/17 08:54 Dose: 81 mg Bisacodyl (Dulcolax) 5 mg PO DAILY PRN PRN Reason: Constipation Bupivacaine HCl (Marcaine 0.25%) Confirm Administered Dose 30 ml .ROUTE .STK- MED ONE Stop: 03/08/17 12:31 Last Admin: 03/08/17 14:51 Dose: 30 ml Calcium Carbonate (Calcium Carbonate/Vitamin D 1500 Mg-200 Unit) 2 tab PO DAILY [facility] Last Admin: 03/09/17 08:55 Dose: 2 tab Cefazolin Sodium (Ancef) Confirm Administered Dose 2 gm .ROUTE .STK-MED ONE Stop: 03/08/17 12:31 Cefazolin Sodium (Ancef) Confirm Administered Dose 2 gm .ROUTE .STK-MED ONE Stop: 03/08/17 13:00 Last Admin: 03/08/17 14:44 Dose: 2 gm Morphine Sulfate 8 mg/Epinephrine HCl 0.3 mg/Cefuroxime Sodium 750 mg/Ketorolac Tromethamine 30 mg/Sodium Chloride 27.9 ml 0 mg .XX ONETIME ONE Stop: 03/08/17 11:46 Last Admin: 03/08/17 20:11 Dose: Not Given Diltiazem HCl (Dilacor Xr) 240 mg PO DAILY [facility] Last Admin: 03/09/17 08:55 Dose: 240 mg Diphenhydramine HCl (Benadryl) 25 mg IVPUSH Q4H PRN PRN Reason: Nausea Docusate Sodium (Colace) 100 mg PO BID PRN PRN Reason: Constipation Ezetimibe (Zetia) 10 mg PO Q48H [facility] Ezetimibe (Zetia) 10 mg PO Q48H [facility] Last Admin: 03/09/17 15:16 Dose: 10 mg Enoxaparin Sodium (Lovenox) 30 mg SUBCUT DAILY [facility] Last Admin: 03/09/17 15:16 Dose: 30 mg Famotidine (Pepcid) 20 mg PO Q12H [facility] Last Admin: 03/08/17 20:40 Dose: 20 mg Famotidine (Pepcid) 20 mg PO DAILY [facility] Last Admin: 03/09/17 08:54 Dose: 20 mg Fentanyl (Sublimaze) Confirm Administered Dose 100 mcg .ROUTE .[facility] ONE Stop: 03/08/17 12:59 Fentanyl (Duragesic) 12 mcg TOP Q72H [facility] Fentanyl (Sublimaze) 50 mcg IVPUSH Q5M PRN PRN Reason: pain Fentanyl (Duragesic) 12 mcg TOP Q72H [facility] Fluoxetine HCl (Prozac) 20 mg PO DAILY [facility] Last Admin: 03/09/17 08:54 Dose: 20 mg Furosemide (Lasix) 20 mg PO DAILY [facility] Last Admin: 03/09/17 08:55 Dose: 20 mg Hydromorphone HCl (Dilaudid) 0.5 mg IVPUSH Q15M PRN PRN Reason: Pain (severe 7-10) Lactated Ringer's (Ringers, Lactated) 1,000 mls @ 125 mls/hr IV ASDIRECTED [facility] Lactated Ringer's (Ringers, Lactated) 1,000 mls @ 125 mls/hr IV ASDIRECTED [facility] Last Admin: 03/08/17 11:00 Dose: 125 mls/hr Cefazolin Sodium/Dextrose 2 gm (/ Premix) 50 mls @ 100 mls/hr IV Q8H [facility] Stop: 03/09/17 12:59 Last Admin: 03/09/17 12:30 Dose: 100 mls/hr Lidocaine HCl (Xylocaine-Mpf 1%) Confirm Administered Dose 4 mls @ as directed .ROUTE .STK-MED ONE Stop: 03/08/17 13:00 Lactated Ringer's (Ringers, Lactated) Confirm Administered Dose 1,000 mls @ as directed .ROUTE .STK-MED ONE Stop: 03/08/17 13:57 Lactated Ringer's (Ringers, Lactated) Confirm Administered Dose 1,000 mls @ as directed .ROUTE .STK-MED ONE Stop: 03/08/17 15:17 Influenza Virus Vaccine (Pharmacy To Dose - Influenza Vaccine) 1 each IM ONETIME ONE Stop: 03/08/17 12:45 Last Admin: 03/08/17 17:15 Dose: Not Given Influenza Virus Vaccine (Fluzone High-Dose ) 180 mcg IM .ONCE ONE Stop: 03/08/17 13:01 Last Admin: 03/08/17 17:15 Dose: Not Given Influenza Virus Vaccine (Fluzone High-Dose ) 180 mcg IM .ONCE ONE Stop: 03/09/17 16:13 Last Admin: 03/09/17 16:29 Dose: 180 mcg Iodine (Iodine 2% Mild Tincture) Confirm Administered Dose 30 ml .ROUTE .STK- MED ONE Stop: 03/08/17 12:31 Last Admin: 03/08/17 14:40 Dose: 18 ml Latanoprost (Xalatan 0.005% Ophth Soln) 0 ml EYERT BEDTIME [facility] Lidocaine/Sodium Bicarbonate (Buffered Lidocaine 1% In Ns 8.4%) 0.25 ml IV ONETIME PRN PRN Reason: Prior to IV Start Lidocaine/Sodium Bicarbonate (Buffered Lidocaine 1% In Ns 8.4%) 0.25 ml IV ONETIME PRN PRN Reason: Prior to IV Start Last Admin: 03/08/17 10:59 Dose: 0.25 ml Magnesium Hydroxide (Milk Of Magnesia) 30 ml PO BID PRN PRN Reason: Constipation Morphine Sulfate (Morphine) 2 mg IVPUSH Q2H PRN PRN Reason: Breakthrough Pain Morphine Sulfate (Duramorph Pf) Confirm Administered Dose 10 mg .ROUTE .STK-MED ONE Stop: 03/08/17 13:33 Naloxone HCl (Narcan) 0.1 mg IVPUSH Q5M PRN PRN Reason: Oversedation Ondansetron HCl (Zofran) 4 mg IVPUSH Q6H PRN PRN Reason: Nausea/Vomiting Ondansetron HCl (Zofran) Confirm Administered Dose 4 mg .ROUTE .STK-MED ONE Stop: 03/08/17 12:59 Ondansetron HCl (Zofran) 4 mg IVPUSH ONETIME PRN PRN Reason: Nausea/Vomiting Oxycodone/Acetaminophen (Percocet 325-5 Mg) 1 - 2 tab PO Q4H PRN PRN Reason: Pain Last Admin: 03/09/17 15:17 Dose: 2 tab Pantoprazole Sodium (Protonix) 40 mg PO DAILY [facility] Last Admin: 03/09/17 09:05 Dose: Not Given Ubidecarenone 100 Mg 0 each PO DAILY [facility] Last Admin: 03/09/17 09:06 Dose: Not Given Phenylephrine HCl (Elias-Synephrine) Confirm Administered Dose 10 mg .ROUTE .STK- MED ONE Stop: 03/08/17 14:32 Pneumococcal 13-Valent Conj Vacc (Prevnar 13) 0.5 ml IM .ONCE ONE Stop: 03/09/17 15:34 Last Admin: 03/09/17 16:20 Dose: Not Given Propofol (Diprivan 20 Ml) Confirm Administered Dose 200 mg .ROUTE .STK-MED ONE Stop: 03/08/17 12:59 Propofol (Diprivan 20 Ml) Confirm Administered Dose 200 mg .ROUTE .STK-MED ONE Stop: 03/08/17 14:42 Rivaroxaban (Xarelto) 10 mg PO DAILY [facility] Senna (Senna) 8.6 mg PO BID PRN PRN Reason: Constipation Simvastatin (Zocor) 40 mg PO BEDTIME [facility] Last Admin: 03/08/17 20:40 Dose: 40 mg Sodium Chloride (Saline Flush) 10 ml FLUSH ASDIRECTED PRN PRN Reason: Keep Vein Open Sodium Chloride (Saline Flush) 10 ml FLUSH ASDIRECTED PRN PRN Reason: Keep Vein Open Tamsulosin HCl (Flomax) 0.4 mg PO TuFr@0900 [facility] Last Admin: 03/09/17 08:54 Dose: 0.4 mg Timolol Maleate (Timoptic 0.5% Ophth Soln) 0 ml EYERT BEDTIME [facility] Tiotropium [place] (Spiriva Handihaler) 18 mcg INH DAILYRT [facility] Last Admin: 03/09/17 08:39 Dose: 1 puff Tranexamic Acid (Cyklokapron) Confirm Administered Dose 1,000 mg .ROUTE .STK- MED ONE Stop: 03/08/17 12:31 Last Admin: 03/08/17 14:52 Dose: 1,000 mg Vancomycin HCl (Vancomycin) Confirm Administered Dose 1 gm .ROUTE .STK-MED ONE Stop: 03/08/17 12:31 Last Admin: 03/08/17 14:54 Dose: 1 gm - Exam Wound/Incisions: Dressing Dry and Intact General: Alert, Cooperative, No Acute Distress Lungs: Normal Respiratory Effort Extremities: Other (Left thigh soft. NVS intact for BLE. Denia's negative.) - Problem List Review Problem List Initiated/Reviewed/Updated: Yes - My Orders Last 24 Hours: Active Orders 24 hr Category Date Time Status Ready for Discharge [RC] PER UNIT ROUTINE Care 03/09/17 13:53 Active - Assessment Assessment (Free Text/Narrative):: POD#1 - left PETER - Plan Plan (Free Text/Narrative):: 1. Hgb 10.5 2. Lovenox for VTE prophylaxis as pt is not a candidate for Xarelto due to renal function. 3. PETER precautions. 4. Discharge to home today. Dr. Carvalho evaluated the pt today.
--- NOTE | 2017-03-10 10:24 | PCM.DCSUM1 ---
Discharge Summary - Hospital Course Brief History: Antonino is a 76 yo male who underwent left PETER with Dr. Carvalho on . The procedure was completed under spinal anesthesia. The pt tolerated the procedure well and was admitted to the Medical-Surgical Unit. Medical management was provided by the Hospitalist service. The pt's Hospital course was uneventful. The pt's Hgb on POD#1 was 10.5. On POD#1, Lovenox daily was initiated for VTE prophylaxis. SCDs and TEDs were also ordered. A Mepilex dressing was placed at the incision site at the time of surgery and remained clean and dry. The pt participated in P.T. and O.T. and progressed well. He followed the PETER precautions. The pt was allowed to WBAT. On POD#1, the pt was deemed appropriate to discharge to home with his . - Discharge Data Discharge Date: 03/09/17 Discharge Disposition: Home, Self-Care 01 Condition: Good - Patient Summary/Data Operative Procedure(s) Performed: left total hip arthroplasty Consults: Consultations 03/08/17 06:56 Consult to Physician [CONS] Routine OT Evaluation and Treatment [CONS] Routine 03/08/17 07:03 PT Evaluation and Treatment [CONS] Routine - Patient Instructions Diet: Heart Healthy Diet, Usual Diet as Tolerated Activity: Apply Ice, As Tolerated, Elevate Extremity, Full Weight Bearing Activity, Other: PETER precautions. Driving: Do Not Drive Showering/Bathing: May Shower Wound/Incision Care: Keep Operative Site/Wound Site Clean and Dry, Do NOT Change Dressing Notify Provider of: Fever, Increased Pain, Swelling and Redness, Drainage, Nausea and/or Vomiting Other/Special Instructions: Please get up and moving around every hour while awake. This helps to prevent blood clots. Please use your walker and have help with mobility as needed. Please take Xarelto blood thinner medication daily as directed. You may schedule for P.T. Follow the PETER precautions. Use the pain medication as needed. The medication may cause drowsiness and constipation. Contact your primary care provider for instructions if you are constipated. You may use a stool softener like docusate sodium or Colace 100mg twice daily and/or a laxative like Miralax daily for constipation. Wear the JORDAN hose during the day and you may remove these at night. Place ice to the hip often and elevate the limb to decrease swelling. Place a towel between your skin and the blue pad. Call the Clinic with questions or concerns - [phone]. - Discharge Plan Prescriptions/Med Rec: Acetaminophen/oxyCODONE [Percocet 325-5 MG] 1 - 2 tab PO Q4H PRN #60 tablet PRN Reason: Pain Enoxaparin [Lovenox] 30 mg SUBCUT DAILY #14 syringe Home Medications: Home Meds Allopurinol [Zyloprim] 100 mg PO DAILY 03/05/17 [History] Aspirin 81 mg PO DAILY 03/05/17 [History] Calcium Citrate/Vitamin D3 [Citracal + D Maximum Caplet] 2 tab PO DAILY [History] Diltiazem [Cardizem CD] 240 mg PO BEDTIME 03/05/17 [History] Ezetimibe [Zetia] 10 mg PO Q48H 03/05/17 [History] FLUoxetine [PROzac] 20 mg PO DAILY 03/05/17 [History] Furosemide [Lasix] 20 mg PO DAILY 03/05/17 [History] Krill Oil 500 mg PO DAILY 03/05/17 [History] Multivitamin [Zoo Chews] 1 tab PO DAILY 03/05/17 [History] Pantoprazole Sodium [Protonix] 40 mg PO DAILY 03/05/17 [History] Simvastatin [Zocor] 40 mg PO BEDTIME 03/05/17 [History] Tadalafil [Cialis] 10 mg PO ASDIRECTED PRN 03/05/17 [History] Tamsulosin HCl [Flomax] 0.4 mg PO TUFR 03/05/17 [History] Timolol [Betimol] 1 drop EYERT BEDTIME 03/05/17 [History] Tiotropium [Spiriva HandiHaler] 1 puff INH DAILY 03/05/17 [History] Ubidecarenone [Coq-10] 100 mg PO DAILY 03/05/17 [History] fentaNYL [Duragesic] 12 mcg TOP Q72H 03/05/17 [History] Acetaminophen/oxyCODONE [Percocet 325-5 MG] 1 - 2 tab PO Q4H PRN #60 tablet [Rx] Enoxaparin [Lovenox] 30 mg SUBCUT DAILY #14 syringe 03/09/17 [Rx] Magnesium Hydroxide [Milk of Magnesia] 30 ml PO BID PRN cup 03/09/17 [Rx] Travoprost [Travatan Z] 1 drop EYERT BEDTIME 03/09/17 [History] Patient Handouts: Total Hip Replacement, [id number], Total Hip Replacement, Care After, [id number], How and Where to Give Subcutaneous Enoxaparin Injections Referrals: Uzma Lagos PA-C [Physician Clinical Social Work Aide] - (Please see Uzma Lagos on Thursday March 16, 2017 at 2:00 PM and on Thursday March 23, 2017 at 1:00 PM.) - Patient Data Vitals - Most Recent: Last Vital Signs Temp 98.4 F 03/09/17 12:29 Pulse 103 H 03/09/17 12:29 Resp 20 03/09/17 12:29 BP 146/67 H 03/09/17 12:29 Pulse Ox 92 L 03/09/17 12:29 Weight - Most Recent: 156 lb 8 oz I&O - Last 24 hours: Intake & Output 03/09/17 03/10/17 03/10/17 22:59 06:59 14:59 Intake Total 210 Balance 210 Med Orders - Current: Current Medications Discontinued Medications Allopurinol (Zyloprim) 100 mg PO DAILY [facility] Last Admin: 03/09/17 08:55 Dose: 100 mg Aspirin (Aspirin) 81 mg PO DAILY [facility] Last Admin: 03/09/17 08:54 Dose: 81 mg Bisacodyl (Dulcolax) 5 mg PO DAILY PRN PRN Reason: Constipation Bupivacaine HCl (Marcaine 0.25%) Confirm Administered Dose 30 ml .ROUTE .STK- MED ONE Stop: 03/08/17 12:31 Last Admin: 03/08/17 14:51 Dose: 30 ml Calcium Carbonate (Calcium Carbonate/Vitamin D 1500 Mg-200 Unit) 2 tab PO DAILY [facility] Last Admin: 03/09/17 08:55 Dose: 2 tab Cefazolin Sodium (Ancef) Confirm Administered Dose 2 gm .ROUTE .STK-MED ONE Stop: 03/08/17 12:31 Cefazolin Sodium (Ancef) Confirm Administered Dose 2 gm .ROUTE .STK-MED ONE Stop: 03/08/17 13:00 Last Admin: 03/08/17 14:44 Dose: 2 gm Morphine Sulfate 8 mg/Epinephrine HCl 0.3 mg/Cefuroxime Sodium 750 mg/Ketorolac Tromethamine 30 mg/Sodium Chloride 27.9 ml 0 mg .XX ONETIME ONE Stop: 03/08/17 11:46 Last Admin: 03/08/17 20:11 Dose: Not Given Diltiazem HCl (Dilacor Xr) 240 mg PO DAILY [facility] Last Admin: 03/09/17 08:55 Dose: 240 mg Diphenhydramine HCl (Benadryl) 25 mg IVPUSH Q4H PRN PRN Reason: Nausea Docusate Sodium (Colace) 100 mg PO BID PRN PRN Reason: Constipation Ezetimibe (Zetia) 10 mg PO Q48H [facility] Ezetimibe (Zetia) 10 mg PO Q48H [facility] Last Admin: 03/09/17 15:16 Dose: 10 mg Enoxaparin Sodium (Lovenox) 30 mg SUBCUT DAILY [facility] Last Admin: 03/09/17 15:16 Dose: 30 mg Famotidine (Pepcid) 20 mg PO Q12H [facility] Last Admin: 03/08/17 20:40 Dose: 20 mg Famotidine (Pepcid) 20 mg PO DAILY [facility] Last Admin: 03/09/17 08:54 Dose: 20 mg Fentanyl (Sublimaze) Confirm Administered Dose 100 mcg .ROUTE .STK-MED ONE Stop: 03/08/17 12:59 Fentanyl (Duragesic) 12 mcg TOP Q72H [facility] Fentanyl (Sublimaze) 50 mcg IVPUSH Q5M PRN PRN Reason: pain Fentanyl (Duragesic) 12 mcg TOP Q72H [facility] Fluoxetine HCl (Prozac) 20 mg PO DAILY [facility] Last Admin: 03/09/17 08:54 Dose: 20 mg Furosemide (Lasix) 20 mg PO DAILY [facility] Last Admin: 03/09/17 08:55 Dose: 20 mg Hydromorphone HCl (Dilaudid) 0.5 mg IVPUSH Q15M PRN PRN Reason: Pain (severe 7-10) Lactated Ringer's (Ringers, Lactated) 1,000 mls @ 125 mls/hr IV ASDIRECTED [facility] Lactated Ringer's (Ringers, Lactated) 1,000 mls @ 125 mls/hr IV ASDIRECTED [facility] Last Admin: 03/08/17 11:00 Dose: 125 mls/hr Cefazolin Sodium/Dextrose 2 gm (/ Premix) 50 mls @ 100 mls/hr IV Q8H POLO Stop: 03/09/17 12:59 Last Admin: 03/09/17 12:30 Dose: 100 mls/hr Lidocaine HCl (Xylocaine-Mpf 1%) Confirm Administered Dose 4 mls @ as directed .ROUTE .STK-MED ONE Stop: 03/08/17 13:00 Lactated Ringer's (Ringers, Lactated) Confirm Administered Dose 1,000 mls @ as directed .ROUTE .STK-MED ONE Stop: 03/08/17 13:57 Lactated Ringer's (Ringers, Lactated) Confirm Administered Dose 1,000 mls @ as directed .ROUTE .STK-MED ONE Stop: 03/08/17 15:17 Influenza Virus Vaccine (Pharmacy To Dose - Influenza Vaccine) 1 each IM ONETIME ONE Stop: 03/08/17 12:45 Last Admin: 03/08/17 17:15 Dose: Not Given Influenza Virus Vaccine (Fluzone High-Dose ) 180 mcg IM .ONCE ONE Stop: 03/08/17 13:01 Last Admin: 03/08/17 17:15 Dose: Not Given Influenza Virus Vaccine (Fluzone High-Dose ) 180 mcg IM .ONCE ONE Stop: 03/09/17 16:13 Last Admin: 03/09/17 16:29 Dose: 180 mcg Iodine (Iodine 2% Mild Tincture) Confirm Administered Dose 30 ml .ROUTE .STK- MED ONE Stop: 03/08/17 12:31 Last Admin: 03/08/17 14:40 Dose: 18 ml Latanoprost (Xalatan 0.005% Ophth Soln) 0 ml EYERT BEDTIME [facility] Lidocaine/Sodium Bicarbonate (Buffered Lidocaine 1% In Ns 8.4%) 0.25 ml IV ONETIME PRN PRN Reason: Prior to IV Start Lidocaine/Sodium Bicarbonate (Buffered Lidocaine 1% In Ns 8.4%) 0.25 ml IV ONETIME PRN PRN Reason: Prior to IV Start Last Admin: 03/08/17 10:59 Dose: 0.25 ml Magnesium Hydroxide (Milk Of Magnesia) 30 ml PO BID PRN PRN Reason: Constipation Morphine Sulfate (Morphine) 2 mg IVPUSH Q2H PRN PRN Reason: Breakthrough Pain Morphine Sulfate (Duramorph Pf) Confirm Administered Dose 10 mg .ROUTE .STK-MED ONE Stop: 03/08/17 13:33 Naloxone HCl (Narcan) 0.1 mg IVPUSH Q5M PRN PRN Reason: Oversedation Ondansetron HCl (Zofran) 4 mg IVPUSH Q6H PRN PRN Reason: Nausea/Vomiting Ondansetron HCl (Zofran) Confirm Administered Dose 4 mg .ROUTE .STK-MED ONE Stop: 03/08/17 12:59 Ondansetron HCl (Zofran) 4 mg IVPUSH ONETIME PRN PRN Reason: Nausea/Vomiting Oxycodone/Acetaminophen (Percocet 325-5 Mg) 1 - 2 tab PO Q4H PRN PRN Reason: Pain Last Admin: 03/09/17 15:17 Dose: 2 tab Pantoprazole Sodium (Protonix) 40 mg PO DAILY [facility] Last Admin: 03/09/17 09:05 Dose: Not Given Ubidecarenone 100 Mg 0 each PO DAILY [facility] Last Admin: 03/09/17 09:06 Dose: Not Given Phenylephrine HCl (Elias-Synephrine) Confirm Administered Dose 10 mg .ROUTE .STK- MED ONE Stop: 03/08/17 14:32 Pneumococcal 13-Valent Conj Vacc (Prevnar 13) 0.5 ml IM .ONCE ONE Stop: 03/09/17 15:34 Last Admin: 03/09/17 16:20 Dose: Not Given Propofol (Diprivan 20 Ml) Confirm Administered Dose 200 mg .ROUTE .STK-MED ONE Stop: 03/08/17 12:59 Propofol (Diprivan 20 Ml) Confirm Administered Dose 200 mg .ROUTE .STK-MED ONE Stop: 03/08/17 14:42 Rivaroxaban (Xarelto) 10 mg PO DAILY [facility] Senna (Senna) 8.6 mg PO BID PRN PRN Reason: Constipation Simvastatin (Zocor) 40 mg PO BEDTIME [facility] Last Admin: 03/08/17 20:40 Dose: 40 mg Sodium Chloride (Saline Flush) 10 ml FLUSH ASDIRECTED PRN PRN Reason: Keep Vein Open Sodium Chloride (Saline Flush) 10 ml FLUSH ASDIRECTED PRN PRN Reason: Keep Vein Open Tamsulosin HCl (Flomax) 0.4 mg PO TuFr@0900 [facility] Last Admin: 03/09/17 08:54 Dose: 0.4 mg Timolol Maleate (Timoptic 0.5% Ophth Soln) 0 ml EYERT BEDTIME POLO Tiotropium [place] (Spiriva Handihaler) 18 mcg INH DAILYRT [facility] Last Admin: 03/09/17 08:39 Dose: 1 puff Tranexamic Acid (Cyklokapron) Confirm Administered Dose 1,000 mg .ROUTE .STK- MED ONE Stop: 03/08/17 12:31 Last Admin: 03/08/17 14:52 Dose: 1,000 mg Vancomycin HCl (Vancomycin) Confirm Administered Dose 1 gm .ROUTE .STK-MED ONE Stop: 03/08/17 12:31 Last Admin: 03/08/17 14:54 Dose: 1 gm *Q Meaningful Use (DIS) - VTE *Q VTE Criteria *Q: - Stroke *Q Stroke Criteria *Q: - AMI *Q AMI Criteria *Q:
[2017-03-11] MEDS ORDERED: fentaNYL 12 MCG/HR Transdermal Patch TOP SCH (07:00)
--- NOTE | 2017-03-14 22:19 | OR ---
DATE OF OPERATION: 03/08/2017 SURGEON: Naif Carvalho MD OPERATION PERFORMED: Left total hip arthroplasty. PREOPERATIVE DIAGNOSIS: Left hip osteoarthrosis. POSTOPERATIVE DIAGNOSIS: Left hip osteoarthrosis. ANESTHESIA: Local MAC with spinal. ANESTHESIA PROVIDER: Dr. Martha So. ASSISTANTS: Uzma Lagos PA-C and Elizabeth Morin LPN. ESTIMATED BLOOD LOSS: 150 mL. COMPLICATIONS: None. CONDITION: Stable. IMPLANTS: 1. Wayne size 54 Tritanium acetabular cup. 2. A 42 MDM liner. 3. A 28+ 0 ceramic head. 4. Size 4 Accolade II stem. DESCRIPTION OF PROCEDURE: The patient was identified in the preop holding area, proper site was marked and identified by the surgeon. The patient was taken back to the operating room theater, where after adequate anesthesia, the patient was placed in the right lateral decubitus position, and axillary wedge was placed. All bony prominences well padded. Pegs were then placed and were well padded. The patient's gluteal fold was parallel to the floor. At this time, the left hip was sterilely prepped and draped in usual sterile fashion. OR time-out was performed. The patient received 2 g of IV Ancef. Standard posterior incision was made centered over the greater trochanter. This was taken down to the IT band and gluteal fascia, which was incised along the incisional length. Charnley retractor was then placed. Short external rotators were identified with capsulotomy and takedown of the short external rotators was done from the piriformis all the way to level of the lesser trochanter. At this time, the hip was dislocated. Neck cut guide was then placed and neck cut was completed. This was found to be an adequate resection. Anterior and posterior acetabular retractors were placed. The pulvinar along with the labrum were removed. Starting with a 46 reamer, I was able to ream up to a 54, which was found to have good fit with a trial. 54 mm Tritanium acetabular cup was then impacted in place and roughly 45 degrees of abduction and 20 degrees of anteversion. It was found to have adequate fixation. At this time, the MDM liner was impacted into place. Attention was turned to the femur. A femoral elevator was placed. Box chisel was used out laterally and starter awl was placed down the canal. Starting with a size 0 broach, I was able to broach up to a size 4, which was found to be rotationally and vertically stable. At this time, trial implants were placed, and a 28+ 0 with MDM components, was found to have adequate yarsanism of leg length and was stable throughout range of motion. At this time, the hip was dislocated. With the use of a bone hook, the size 4 Accolade II stem was then impacted into place along with the MDM components of a 42 with 28 ceramic head. At this time, this was impacted in place. The hip was relocated with 1 L of dilute Betadine solution along with 3 L of Pulsavac irrigation with Ancef were irrigated through the hip. Periarticular injection was completed. Topical tranexamic acid and vancomycin powder was placed. One #5 Ethibond suture was used for closure of the short external rotators and capsule. #2 FiberWire 2-0 suture was used for closure of the IT band and gluteal fascia, 2-0 Vicryl was used subcutaneously, and Prineo was used for the skin. The patient was sent to the PACU in stable condition and tolerated the procedure well. MMBENITO /[id number]
== END 2017-03-09 15:35 | disposition home or self-care (01) | DRG 470 ==
LOC: JD.MS 03-08 10:29
PROVIDERS: ADMIT Orthopaedic Surgery; ATTEND Orthopaedic Surgery
PROC: 0SRB029 Replacement of Left Hip Joint with Metal on Polyethylene Synthetic Substitute, Cemented, Open Approach (ICD-10-PCS; principal; 2017-03-08)
DX: M16.12 Unilateral primary osteoarthritis, left hip (principal); I13.10 Hypertensive heart and chronic kidney disease without heart failure, with stage 1 through stage 4 chronic kidney disease, or unspecified chronic kidney disease; N18.3 Chronic kidney disease, stage 3 (moderate); E78.00 Pure hypercholesterolemia, unspecified; J44.9 Chronic obstructive pulmonary disease, unspecified; K21.9 Gastro-esophageal reflux disease without esophagitis; G47.30 Sleep apnea, unspecified; M10.9 Gout, unspecified; Z96.641 Presence of right artificial hip joint; Z87.891 Personal history of nicotine dependence; Z88.2 Allergy status to sulfonamides; Z88.1 Allergy status to other antibiotic agents; Z91.041 Radiographic dye allergy status; Z79.82 Long term (current) use of aspirin; Z79.899 Other long term (current) drug therapy
CPT/HCPCS: 01402; 36415; 73501-26-LT; 73501-LT; 80053; 85027; 86850; 86900; 86901; 90662; 94664; 94762; 97110-GP; 97116-GP; 97162-GP; 97166-GO; 97535-GO; 99221; 99231; A9270; A9270-GY; C1776; G0008; G0009; J0171; J0690; J0697; J1650; J1885; J2270; J2370; J2405; J2704; J3010; J3370; J3490; J7120

== ENCOUNTER 2017-11-25 10:20 | Day surgery (SDC) | payer MEDICARE, BC ==
[~2017-11-25 10:20] MED LIST changes: +Lidocaine 1% 4 ML ONE; +Lidocaine 1%/Sod Bicarbonate in NS 8.4% 1 ML Syringe IDERM PRN; -Lidocaine 1%/Sod Bicarbonate in NS 8.4% 1 ML Syringe IV PRN; +Propofol 200 MG/20 ML SDV ONE; +ceFAZolin 1 GM Vial ONE; +fentaNYL 100 MCG/2 ML SDV ONE
--- NOTE | 2017-11-25 10:54 | PCM.PREANE ---
Preanesthetic Assessment - Procedure Proposed Procedure: right hand carpal tunnel release - Anesthesia/Transfusion/Family Hx Anesthesia History: Prior Anesthesia Without Reaction Family History of Anesthesia Reaction: No Transfusion History: No Prior Transfusion(s) - Review of Systems General: No Symptoms Pulmonary: No Symptoms Cardiovascular: No Symptoms Gastrointestinal: No Symptoms Neurological: No Symptoms Other: Reports: Easy Bruising, Diabetes (borderline), Sinus Problem (dry nose) - Physical Assessment NPO Status Date: 11/25/17 (took pills) NPO Status Time: 03:30 Pulse: 71 O2 Sat by Pulse Oximetry: 95 Respiratory Rate: 20 Blood Pressure: 127/86 Temperature: 97.6 F Height: 5 ft 7 in Weight: 74.4 kg ASA Class: 3 Mental Status: Alert & Oriented x3 Airway Class: Mallampati = 2 Dentition: Reports: Dentures (bottom ), Broken Tooth/Teeth, Missing Tooth/Teeth Thyro-Mental Finger Breadths: 3 Mouth Opening Finger Breadths: 3 ROM/Head Extension: Full Lungs: Clear to Auscultation, Normal Respiratory Effort Cardiovascular: Regular Rate, Regular Rhythm - Lab Values: Laboratory Last Values MRSA (PCR) Negative 11/23/17 17:01 - Allergies Allergies/Adverse Reactions: Allergies Allergy/AdvReac Type Severity Reaction Status Date / Time doxycycline Allergy Edema Verified 11/24/17 13:56 Sulfa (Sulfonamide Allergy Rash Verified 11/24/17 13:56 Antibiotics) - Blood Blood Available: No - Acknowledgements Anesthesia Type Planned: MAC Pt an Appropriate Candidate for the Planned Anesthesia: Yes Alternatives and Risks of Anesthesia Discussed w Pt/Guardian: Yes Pt/Guardian Understands and Agrees with Anesthesia Plan: Yes PreAnesthesia Questionnaire HEENT History: Reports: Cataract, Glaucoma, Hard of Hearing, Impaired Vision, Other (See Below) Other HEENT History: has glasses, hearing aids, dentures, permanent contact Cardiovascular History: Reports: Heart Failure, Hypertension, Other (See Below) Other Cardiovascular History: mitral valve regurgitation and stenosis, abdominal bruit, aortic stenosis Respiratory History: Reports: Bronchitis, Recurrent, Sleep Apnea, Other (See Below) Other Respiratory History: COPD, chronic bronchitis Gastrointestinal History: Reports: GERD Genitourinary History: Reports: Other (See Below) Other Genitourinary History: CKD III, nocturia 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 REPAIRER History: Reports: None Musculoskeletal History: Reports: Arthritis, Gout, Osteoarthritis, RA, Other ( See Below) Other Musculoskeletal History: left bicep tendon rupture, right carpal tunnel syndrome Neurological History: Reports: None Psychiatric History: Reports: None Endocrine/Metabolic History: Reports: Diabetes, Type II (borderline) Hematologic History: Reports: None Immunologic History: Reports: None Oncologic (Cancer) History: Reports: None Dermatologic History: Reports: None - Past Surgical History Head Surgeries/Procedures: Reports: None HEENT Surgical History: Reports: Naso-Sinus Surgery Cardiovascular Surgical History: Reports: None Respiratory Surgical History: Reports: None GI Surgical History: Reports: Other (See Below) Other GI Surgeries/Procedures: abdominal surgery Male Surgical History: Reports: None Endocrine Surgical History: Reports: None Neurological Surgical History: Reports: C-Spine, Laminectomy, Spinal Fusion, Other (See Below) Other Neurological Surgeries/Procedures: lumbar fusion L2-L5, laminectomy of L1, L5; C2-C6 fusion Musculoskeletal Surgical History: Reports: None, Hip Replacement Oncologic Surgical History: Reports: None Dermatological Surgical History: Reports: None - SUBSTANCE USE Smoking Status *Q: Former Smoker (quit 40 years ago) Tobacco Use Within Last Twelve Months: No Second Hand Smoke Exposure: No Days Per Week of Alcohol Use: 4 Number of Drinks Per Day: 1 (twisted tea, shot wiskey) Total Drinks Per Week: 4 Recreational Drug Use History: No - HOME MEDS Home Medications: Home Meds Allopurinol [Zyloprim] 100 mg PO DAILY 03/05/17 [History] Aspirin 81 mg PO DAILY 03/05/17 [History] Calcium Citrate/Vitamin D3 [Citracal + D Maximum Caplet] 2 tab PO DAILY [History] Ezetimibe [Zetia] 10 mg PO BEDTIME 03/05/17 [History] FLUoxetine [PROzac] 20 mg PO Q48H 03/05/17 [History] Furosemide [Lasix] 20 mg PO DAILY 03/05/17 [History] Krill Oil 500 mg PO DAILY 03/05/17 [History] Multivitamin [Zoo Chews] 1 tab PO DAILY 03/05/17 [History] Simvastatin [Zocor] 40 mg PO BEDTIME 03/05/17 [History] Tamsulosin HCl [Flomax] 0.4 mg PO BEDTIME 03/05/17 [History] Tiotropium [Spiriva HandiHaler] 2 puff INH DAILY 03/05/17 [History] Travoprost [Travatan Z] 1 drop EYERT BEDTIME 03/09/17 [History] Diltiazem HCl [Cardizem Cd] 300 mg PO DAILY 11/24/17 [History] Methadone 10 mg PO BID 11/24/17 [History] Omeprazole Magnesium [Prilosec Otc] 40 mg PO DAILY 11/24/17 [History] Pramipexole Di-HCl [Mirapex] 0.125 mg PO TID 11/24/17 [History] Valsartan 80 mg PO DAILY 11/24/17 [History] traMADol HCl [Ultram] 50 - 100 mg PO Q6H PRN #15 tablet 11/25/17 [Rx] - CURRENT (IN HOUSE) MEDS Current Meds: Current Medications Lactated Ringer's (Ringers, Lactated) 1,000 mls @ 125 mls/hr IV ASDIRECTED POLO Stop: 11/25/17 23:00 Lidocaine/Sodium Bicarbonate (Buffered Lidocaine 1% In Ns 8.4%) 0.25 ml IDERM ONETIME PRN PRN Reason: Prior to IV Start Stop: 11/25/17 18:00 Sodium Chloride (Saline Flush) 10 ml FLUSH ASDIRECTED PRN PRN Reason: Keep Vein Open Stop: 11/25/17 18:00 Discontinued Medications Cefazolin Sodium (Ancef) Confirm Administered Dose 2 gm .ROUTE .STK-MED ONE Stop: 11/25/17 07:22 Fentanyl (Sublimaze) Confirm Administered Dose 100 mcg .ROUTE .STK-MED ONE Stop: 11/25/17 07:21 Lidocaine HCl (Xylocaine-Mpf 1%) Confirm Administered Dose 4 mls @ as directed .ROUTE .STK-MED ONE Stop: 11/25/17 07:20 Propofol (Diprivan 20 Ml) Confirm Administered Dose 200 mg .ROUTE .STK-MED ONE Stop: 11/25/17 07:21
[2017-11-25] MEDS ORDERED: Lidocaine 1% 30 ML SDV ONE (11:30)
[2017-11-25] MEDS ORDERED: Triamcinolone Acetonide 40 MG/ML 1 ML MDV ONE (11:30)
[2017-11-25] MEDS: Bupivacaine 0.25% 10 ML SDV ONE ×2 (12:04→12:11)
--- NOTE | 2017-11-25 12:29 | PCM48HPAN ---
Post Anesthesia Note - EVALUATION WITHIN 48HRS OF ANESTHETIC Vital Signs in Normal Range: Yes Patient Participated in Evaluation: Yes Respiratory Function Stable: Yes Airway Patent: Yes Cardiovascular Function Stable: Yes Hydration Status Stable: Yes Pain Control Satisfactory: Yes Nausea and Vomiting Control Satisfactory: Yes Mental Status Recovered: Yes Pulse Rate: 68 SaO2: 95 Resp Rate: 20 Temperature: 97.7 F Blood Pressure: 116/54
--- NOTE | 2017-11-29 07:20 | PCM.OPNOTE ---
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
--- NOTE | 2017-11-30 14:26 | OR ---
DATE OF OPERATION: 11/25/2017 SURGEON: Naif Carvalho MD OPERATION PERFORMED: Right hand carpal tunnel release with right 1st carpometacarpal joint injection. 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 ANESTHESIA: Local with MAC ANESTHESIA PROVIDER: Darcy Villalobos CRNA COMFORT FILLER: Uzma Lagos PA-C ESTIMATED BLOOD LOSS: 5 mL. COMPLICATIONS: None. CONDITION: Stable. DESCRIPTION OF PROCEDURE: The patient was identified in the preop holding area where the proper site was marked and identified by the surgeon. The patient was taken back to the operating theater where, after adequate anesthesia, the patient's right upper extremity was sterilely prepped and draped in the usual sterile fashion. OR time-out was performed. The patient received 2 g of IV Ancef. At this time, the right upper extremity was exsanguinated using an Esmarch as a tourniquet on the forearm. After this was completed, 1% lidocaine without epinephrine and 0.25% Marcaine without epinephrine were used to anesthetize the palmar cutaneous branch of the median nerve as well as the incisional site using Woods cardinal line and the ulnar border of the 4th digit. Once this was set up, incision was made. Blunt dissection was taken down to the palmar cutaneous fascia. The palmar cutaneous fascia was incised with a [place] blade. This was taken down to the transverse carpal ligament. A small rent was made in the transverse carpal ligament, and it was resected under direct visualization with tenotomy scissors all the way down, stopping short at the palmar arch, and was found to be adequately released distally. At this time, attention was turned proximally. The superficial forearm fascia as well as the transverse carpal ligament were then released proximally, making sure to keep the tips ulnar to protect the palmar cutaneous branch of the median nerve. At this time, it was found to be adequately released both proximally and distally. Adequate saline was irrigated through the wound. 4-0 nylon sutures were used for closure of the skin. After this was completed, 1 mL of 40 mg Kenalog and 1 mL of 25% Marcaine was injected to the right 1st CMC joint. The patient tolerated that procedure as well. Sterile soft dressing was applied, and he was sent to the PACU in stable condition. DEVENDRA: 11/30/2017 13:53:54 MMODAL /[id number]
== END 2017-11-25 13:28 | disposition home or self-care (01) ==
LOC: JD.SDS 10:20
PROVIDERS: ATTEND Orthopaedic Surgery
DX: G56.11 Other lesions of median nerve, right upper limb (principal); M18.9 Osteoarthritis of first carpometacarpal joint, unspecified; I13.0 Hypertensive heart and chronic kidney disease with heart failure and stage 1 through stage 4 chronic kidney disease, or unspecified chronic kidney disease; I50.9 Heart failure, unspecified; N18.3 Chronic kidney disease, stage 3 (moderate); J44.9 Chronic obstructive pulmonary disease, unspecified; K21.9 Gastro-esophageal reflux disease without esophagitis; E78.5 Hyperlipidemia, unspecified; G47.33 Obstructive sleep apnea (adult) (pediatric); R73.03 Prediabetes; Z87.891 Personal history of nicotine dependence; Z79.82 Long term (current) use of aspirin; Z79.899 Other long term (current) drug therapy; Z88.2 Allergy status to sulfonamides; Z88.1 Allergy status to other antibiotic agents
CPT/HCPCS: 20600; 64721; 87641; J0690; J2704; J3010; J3301; J3490; J7120; 01810; J2001

== ENCOUNTER 2018-02-10 06:38 | Day surgery (SDC) | payer MEDICARE, BC ==
[~2018-02-10 06:38] MED LIST changes: -Lidocaine 1% 4 ML ONE; -Propofol 200 MG/20 ML SDV ONE; -ceFAZolin 1 GM Vial ONE; -fentaNYL 100 MCG/2 ML SDV ONE
[2018-02-10] MEDS ORDERED: Propofol 200 MG/20 ML SDV ONE (06:52)
[2018-02-10] MEDS ORDERED: Ondansetron 4 MG/2 ML SDV ONE (06:52)
[2018-02-10] MEDS ORDERED: Lidocaine 1% 4 ML ONE (06:52)
[2018-02-10] MEDS ORDERED: fentaNYL 100 MCG/2 ML SDV ONE (06:52)
[2018-02-10] MEDS ORDERED: Bupivacaine 0.25% 30 ML SDV ONE (07:06)
[2018-02-10] MEDS ORDERED: Lidocaine 1% 30 ML SDV ONE (07:10)
--- NOTE | 2018-02-10 08:13 | PCM48HPAN ---
Post Anesthesia Note - EVALUATION WITHIN 48HRS OF ANESTHETIC Vital Signs in Normal Range: Yes Patient Participated in Evaluation: Yes Respiratory Function Stable: Yes Airway Patent: Yes Cardiovascular Function Stable: Yes Hydration Status Stable: Yes Pain Control Satisfactory: Yes Nausea and Vomiting Control Satisfactory: Yes Mental Status Recovered: Yes Pulse Rate: 73 SaO2: 95 Resp Rate: 12 Temperature: 36.3 C Blood Pressure: 117/70
--- NOTE | 2018-02-10 08:21 | PCM.PREANE ---
Preanesthetic Assessment - Anesthesia/Transfusion/Family Hx Anesthesia History: Prior Anesthesia Without Reaction Family History of Anesthesia Reaction: No Transfusion History: No Prior Transfusion(s) - Review of Systems General: No Symptoms Pulmonary: No Symptoms, Other (COPD/ROQUE) Cardiovascular: No Symptoms, Other (ECHO EF 65-70%, Grade I diastolic dysfunction, mild mitral regurgitation.) Gastrointestinal: No Symptoms Neurological: Numbness, Pre-Existing Deficit (Chronic back pain, took hydrocodone last evening for his pain. He was unable to sleep. Previous back surgery. ), Tingling (Right hand. ) Other: Reports: Diabetes (Borderline ), Anxiety - Physical Assessment NPO Status Date: 02/09/18 NPO Status Time: 20:00 Pulse: 73 O2 Sat by Pulse Oximetry: 95 Respiratory Rate: 12 Blood Pressure: 117/70 Temperature: 36.3 C Vital Signs: Last Vital Signs Temp 36.3 C 02/10/18 08:12 Pulse 73 02/10/18 08:12 Resp 12 02/10/18 08:12 BP 117/70 02/10/18 08:12 Pulse Ox 95 02/10/18 08:12 Height: 1.68 m Weight: 71.214 kg ASA Class: 3 Mental Status: Alert & Oriented x3 Airway Class: Mallampati = 3 Dentition: Reports: Dentures (lower), Missing Tooth/Teeth Thyro-Mental Finger Breadths: 3 Mouth Opening Finger Breadths: 3 ROM/Head Extension: Limited/Partial (Cervical spine fusion, slight extension noted.) Lungs: Clear to Auscultation, Normal Respiratory Effort Cardiovascular: Regular Rate, Regular Rhythm, Murmurs - Lab Values: Laboratory Last Values MRSA (PCR) Negative 01/28/18 13:46 - Imaging/EKG Impressions: SR, atrial enlargement noted. - Allergies Allergies/Adverse Reactions: Allergies Allergy/AdvReac Type Severity Reaction Status Date / Time doxycycline Allergy Edema Verified 02/09/18 14:37 Sulfa (Sulfonamide Allergy Rash Verified 02/09/18 14:37 Antibiotics) - Acknowledgements Anesthesia Type Planned: MAC Pt an Appropriate Candidate for the Planned Anesthesia: Yes Alternatives and Risks of Anesthesia Discussed w Pt/Guardian: Yes Pt/Guardian Understands and Agrees with Anesthesia Plan: Yes PreAnesthesia Questionnaire HEENT History: Reports: Cataract, Glaucoma, Hard of Hearing, Impaired Vision, Other (See Below) Other HEENT History: has glasses, hearing aids, dentures, permanent contact Cardiovascular History: Reports: Heart Failure, Hypertension, Other (See Below) Other Cardiovascular History: mitral valve regurgitation and stenosis, abdominal bruit, aortic stenosis Respiratory History: Reports: Bronchitis, Recurrent, COPD, Sleep Apnea, Other ( See Below) Other Respiratory History: COPD, chronic bronchitis Gastrointestinal History: Reports: GERD Genitourinary History: Reports: BPH, Other (See Below) Other Genitourinary History: CKD III, nocturia 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 Musculoskeletal History: Reports: Arthritis, Gout, Osteoarthritis, RA, Other ( See Below) Other Musculoskeletal History: left bicep tendon rupture, right carpal tunnel syndrome Neurological History: Reports: None Psychiatric History: Reports: Other (See Below) Other Psychiatric History: insomnia Endocrine/Metabolic History: Reports: Diabetes, Type II Hematologic History: Reports: None Immunologic History: Reports: None Oncologic (Cancer) History: Reports: None Dermatologic History: Reports: None - Past Surgical History Head Surgeries/Procedures: Reports: None HEENT Surgical History: Reports: Cataract Surgery, Naso-Sinus Surgery Cardiovascular Surgical History: Reports: None Respiratory Surgical History: Reports: None GI Surgical History: Reports: Colonoscopy, Other (See Below) Other GI Surgeries/Procedures: abdominal surgery Female Surgical History: Reports: None Male Surgical History: Reports: None Endocrine Surgical History: Reports: None Neurological Surgical History: Reports: C-Spine, Laminectomy, Spinal Fusion, Other (See Below) Other Neurological Surgeries/Procedures: lumbar fusion L2-L5, laminectomy of L1, L5; C2-C6 fusion Musculoskeletal Surgical History: Reports: None, Hip Replacement Other Musculoskeletal Surgeries/Procedures:: right total hip replacement Oncologic Surgical History: Reports: None Dermatological Surgical History: Reports: None - SUBSTANCE USE Smoking Status *Q: Former Smoker Recreational Drug Use History: No - HOME MEDS Home Medications: Home Meds Allopurinol [Zyloprim] 100 mg PO DAILY 03/05/17 [History] Aspirin 81 mg PO DAILY 03/05/17 [History] Calcium Citrate/Vitamin D3 [Citracal + D Maximum Caplet] 2 tab PO DAILY [History] Ezetimibe [Zetia] 10 mg PO BEDTIME 03/05/17 [History] FLUoxetine [PROzac] 20 mg PO Q48H 03/05/17 [History] Furosemide [Lasix] 20 mg PO DAILY 03/05/17 [History] Krill Oil 500 mg PO DAILY 03/05/17 [History] Multivitamin [Zoo Chews] 1 tab PO DAILY 03/05/17 [History] Simvastatin [Zocor] 40 mg PO BEDTIME 03/05/17 [History] Tamsulosin HCl [Flomax] 0.4 mg PO BEDTIME 03/05/17 [History] Tiotropium [Spiriva HandiHaler] 2 puff INH DAILY 03/05/17 [History] Travoprost [Travatan Z] 1 drop EYERT BEDTIME 03/09/17 [History] Diltiazem HCl [Cardizem Cd] 300 mg PO DAILY 11/24/17 [History] Omeprazole Magnesium [Prilosec Otc] 40 mg PO DAILY 11/24/17 [History] Valsartan 40 mg PO DAILY 11/24/17 [History] Acetaminophen/HYDROcodone [[place] 325-5 MG] 1 tab PO Q6H PRN 02/09/18 [History] traMADol HCl [Ultram] 50 - 100 mg PO Q6H PRN #15 tablet 02/10/18 [Rx] - CURRENT (IN HOUSE) MEDS Current Meds: Current Medications Discontinued Medications Bupivacaine HCl (Marcaine 0.25%) Confirm Administered Dose 30 ml .ROUTE .STK- MED ONE Stop: 02/10/18 07:07 Fentanyl (Sublimaze) Confirm Administered Dose 100 mcg .ROUTE .STK-MED ONE Stop: 02/10/18 06:53 Lactated Ringer's (Ringers, Lactated) 1,000 mls @ 125 mls/hr IV ASDIRECTED POLO Stop: 02/09/18 23:00 Last Admin: 02/10/18 06:55 Dose: 125 mls/hr Lidocaine HCl (Xylocaine-Mpf 1%) Confirm Administered Dose 4 mls @ as directed .ROUTE .STK-MED ONE Stop: 02/10/18 06:53 Lidocaine HCl (Xylocaine-Mpf 1%) Confirm Administered Dose 30 ml .ROUTE .STK- MED ONE Stop: 02/10/18 07:11 Lidocaine/Sodium Bicarbonate (Buffered Lidocaine 1% In Ns 8.4%) 0.25 ml IDERM ONETIME PRN PRN Reason: Prior to IV Start Stop: 02/09/18 18:00 Last Admin: 02/10/18 06:55 Dose: 0.25 ml Ondansetron HCl (Zofran) Confirm Administered Dose 4 mg .ROUTE .STK-MED ONE Stop: 02/10/18 06:53 Propofol (Diprivan 20 Ml) Confirm Administered Dose 400 mg .ROUTE .STK-MED ONE Stop: 02/10/18 06:53 Sodium Chloride (Saline Flush) 10 ml FLUSH ASDIRECTED PRN PRN Reason: Keep Vein Open Stop: 02/09/18 18:00
--- NOTE | 2018-02-21 07:04 | PCM.OPNOTE ---
- General Post-Op/Procedure Note Date of Surgery/Procedure: 02/10/18 Operative Procedure(s): left carpal tunnel release Pre Op Diagnosis: left median nerve compression neuropathy Post-Op Diagnosis: Same Anesthesia Technique: Local, MAC Primary Surgeon: Naif Carvalho Anesthesia Provider: Vickie Drew EBL in mLs: 5 Complications: None Condition: Good
--- NOTE | 2018-02-21 08:08 | OR ---
DATE OF OPERATION: 02/10/2018 SURGEON: Naif Carvalho MD OPERATION PERFORMED: Left carpal tunnel release. PREOPERATIVE DIAGNOSIS: Left median nerve compression neuropathy. POSTOPERATIVE DIAGNOSIS: Left median nerve compression neuropathy. ANESTHESIA: Local MAC. ANESTHESIA PROVIDER: Bri Duran. ESTIMATED BLOOD LOSS: 5 mL. COMPLICATIONS: None. CONDITION: Stable. DESCRIPTION OF PROCEDURE: The patient was identified in the preoperative holding area. Proper site was marked and identified by the surgeon. The patient was taken back to the operating theater, where after adequate anesthesia, the patient's left upper extremity was sterilely prepped and draped in the usual sterile fashion. An OR time-out was performed. The patient received 2 g of IV Ancef. The left upper extremity was then exsanguinated. The [place] was used as a tourniquet on the forearm. At this time, using 1% lidocaine without epinephrine and 0.25% Marcaine without epinephrine, the palmar cutaneous branch of the median nerve as well as the incisional site were anesthetized. Once this had set up, incision was made, and blunt dissection was taken down to the palmar cutaneous fascia. Palmar cutaneous fascia was incised along the lengthy incision. The transverse carpal ligament was identified and a small rent was made in the transverse carpal ligament with a [place] blade. A [place] elevator was then used to protect the median nerve. The [place] blade was used to release the transverse carpal ligament all the way distally, making sure to stay off the palmar arch. At this time, it was found to be adequately released distally. Attention was turned proximally. Using a tenotomy scissors proximally, the superficial forearm fascia as well as the transverse carpal ligament were released. There was found to be adequate release both proximally and distally. Adequate saline was irrigated through the wound, and a 4-0 nylon suture was used for closure of the skin. The patient had a sterile soft dressing applied, and was sent to the PACU in stable condition. MMODAL /[id number]
== END 2018-02-10 09:03 | disposition home or self-care (01) ==
LOC: JD.SDS 06:38
PROVIDERS: ATTEND Orthopaedic Surgery
DX: G56.12 Other lesions of median nerve, left upper limb (principal); I12.9 Hypertensive chronic kidney disease with stage 1 through stage 4 chronic kidney disease, or unspecified chronic kidney disease; E11.22 Type 2 diabetes mellitus with diabetic chronic kidney disease; E11.65 Type 2 diabetes mellitus with hyperglycemia; N18.3 Chronic kidney disease, stage 3 (moderate); M10.30 Gout due to renal impairment, unspecified site; J44.9 Chronic obstructive pulmonary disease, unspecified; I05.0 Rheumatic mitral stenosis; G47.33 Obstructive sleep apnea (adult) (pediatric); E78.5 Hyperlipidemia, unspecified; K21.9 Gastro-esophageal reflux disease without esophagitis; M15.9 Polyosteoarthritis, unspecified; Z87.891 Personal history of nicotine dependence; Z79.899 Other long term (current) drug therapy; Z88.2 Allergy status to sulfonamides; Z88.1 Allergy status to other antibiotic agents; Z91.041 Radiographic dye allergy status; F41.9 Anxiety disorder, unspecified; I25.10 Atherosclerotic heart disease of native coronary artery without angina pectoris
CPT/HCPCS: 01810; 87641; J2001; J2405; J2704; J3010; J3490; J7120

== ENCOUNTER 2018-06-18 08:30 | Emergency (ER) | payer MEDICARE, BC ==
--- NOTE | 2018-06-18 09:21 | EDM.PDOC ---
ED HPI GENERAL MEDICAL PROBLEM - General Chief Complaint: Lower Extremity Injury/Pain Stated Complaint: CELLULITIS NOT GETTING BETTER Time Seen by Provider: 06/18/18 08:59 Source of Information: Reports: Patient, RN Notes Reviewed - History of Present Illness INITIAL COMMENTS - FREE TEXT/NARRATIVE: 77-year-old male comes in with continued right knee discomfort. He states that after kneeling on a hard surface about a week or 10 days ago he developed swelling, inflammation just below the right knee anteriorly. He has had a few episodes of that in the past. It did become fairly red, swollen and warm. He did see Dr. Laboy at the clinic about 6 days ago started on cephalexin. The redness swelling and warmth has improved but he still continues to have discomfort both at rest and especially with motion and walking. No fever or chills. He is still on the antibiotic. Right Knee Pain Score (Numeric/FACES): 6 - Related Data Allergies Allergy/AdvReac Type Severity Reaction Status Date / Time doxycycline Allergy Edema Verified 06/18/18 08:41 Sulfa (Sulfonamide Allergy Rash Verified 06/18/18 08:41 Antibiotics) Home Meds: Home Meds Allopurinol [Zyloprim] 100 mg PO DAILY 03/05/17 [History] Aspirin 81 mg PO DAILY 03/05/17 [History] Calcium Citrate/Vitamin D3 [Citracal + D Maximum Caplet] 2 tab PO DAILY [History] Ezetimibe [Zetia] 10 mg PO BEDTIME 03/05/17 [History] FLUoxetine [PROzac] 20 mg PO DAILY 03/05/17 [History] Furosemide [Lasix] 10 mg PO DAILY 03/05/17 [History] Krill Oil 500 mg PO DAILY 03/05/17 [History] Multivitamin [Zoo Chews] 1 tab PO DAILY 03/05/17 [History] Simvastatin [Zocor] 40 mg PO BEDTIME 03/05/17 [History] Tamsulosin HCl [Flomax] 0.4 mg PO ASDIRECTED 03/05/17 [History] Tiotropium [Spiriva HandiHaler] 2 puff INH DAILY 03/05/17 [History] Diltiazem HCl [Cardizem Cd] 300 mg PO DAILY 11/24/17 [History] Valsartan 40 mg PO DAILY 11/24/17 [History] Acetaminophen/HYDROcodone [[place] 325-5 MG] 1 tab PO Q6H PRN 02/09/18 [History] Cephalexin [Keflex] 500 mg PO TID #20 capsule 06/18/18 [Rx] Glimepiride [Amaryl] 2 mg PO PCDINNER 06/18/18 [History] Latanoprost/Pf [Latanoprost 0.005% Eye Drop] 1 drop EYEBOTH BEDTIME 06/18/18 [ History] Pantoprazole [ProTONIX] 40 mg PO DAILY 06/18/18 [History] Pioglitazone HCl [Actos] 0.5 mg PO ACBREAKFAST 06/18/18 [History] Ubidecarenone [Co Q-10] 50 mg PO DAILY 06/18/18 [History] Past Medical History HEENT History: Reports: Cataract, Glaucoma, Hard of Hearing, Impaired Vision, Other (See Below) Other HEENT History: has glasses, hearing aids, dentures, permanent contact Cardiovascular History: Reports: Heart Failure, Hypertension, Other (See Below) Other Cardiovascular History: mitral valve regurgitation and stenosis, abdominal bruit, aortic stenosis Respiratory History: Reports: Bronchitis, Recurrent, COPD, Sleep Apnea, Other ( See Below) Other Respiratory History: COPD, chronic bronchitis Gastrointestinal History: Reports: GERD Genitourinary History: Reports: BPH, Other (See Below) Other Genitourinary History: CKD III, nocturia 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 Neurological History: Reports: None Psychiatric History: Reports: Other (See Below) Other Psychiatric History: insomnia Endocrine/Metabolic History: Reports: Diabetes, Type II Hematologic History: Reports: None Immunologic History: Reports: None Oncologic (Cancer) History: Reports: None Dermatologic History: Reports: None - Past Surgical History Head Surgeries/Procedures: Reports: None HEENT Surgical History: Reports: Cataract Surgery, Naso-Sinus Surgery Cardiovascular Surgical History: Reports: None Respiratory Surgical History: Reports: None GI Surgical History: Reports: Colonoscopy, Other (See Below) Other GI Surgeries/Procedures: abdominal surgery Male Surgical History: Reports: None Endocrine Surgical History: Reports: None Neurological Surgical History: Reports: C-Spine, Laminectomy, Spinal Fusion, Other (See Below) Other Neurological Surgeries/Procedures: lumbar fusion L2-L5, laminectomy of L1, L5; C2-C6 fusion Musculoskeletal Surgical History: Reports: None, Hip Replacement Other Musculoskeletal Surgeries/Procedures:: right total hip replacement Oncologic Surgical History: Reports: None Dermatological Surgical History: Reports: None Social & Family History - Tobacco Use Smoking Status *Q: Never Smoker Second Hand Smoke Exposure: No - Caffeine Use Caffeine Use: Reports: None - Recreational Drug Use Recreational Drug Use: No Review of Systems - Review of Systems Review Of Systems: See Below Constitutional: Denies: Chills, Fever Eyes: Reports: No Symptoms Mouth/Throat: Reports: No Symptoms Respiratory: Denies: Shortness of Breath, Cough Cardiovascular: Denies: Chest Pain GI/Abdominal: Denies: Abdominal Pain, Nausea, Vomiting Musculoskeletal: Reports: Other (Swelling, pain just below the right knee anteriorly) Skin: Reports: Erythema (Improving) Neurological: Denies: Numbness, Tingling ED EXAM, GENERAL - Physical Exam Exam: See Below General Appearance: Alert, No Apparent Distress Eye Exam: Bilateral Eye: PERRL Throat/Mouth: Normal Inspection Head: Atraumatic. No: Facial Swelling Neck: Supple Respiratory/Chest: No Respiratory Distress, Lungs Clear, Normal Breath Sounds Cardiovascular: Regular Rate, Rhythm Extremities: Leg Pain (Mild tenderness over the), Redness (Very mild redness of the tibial tuberosity area just below the right knee), Other (Mild swelling over the right tibial tuberosity). No: Joint Swelling (The knee joint itself is not swollen or tender) Neurological: Alert, Oriented, No Motor/Sensory Deficits Skin Exam: Warm, Dry, Intact Course - Vital Signs Last Recorded V/S: Last Vital Signs Temp 98.5 F 06/18/18 08:30 Pulse 80 06/18/18 08:30 Resp 18 06/18/18 08:30 BP 129/84 06/18/18 08:30 Pulse Ox 98 06/18/18 08:30 - Orders/Labs/Meds Orders: Active Orders 24 hr Category Date Time Status Knee Min 4V Rt [CR] Stat Exams 06/18/18 09:16 Taken Labs: Laboratory Tests 06/18/18 Range/Units 09:22 WBC 7.84 (4.23-9.07) K/mm3 RBC 3.64 L (4.63-6.08) M/mm3 Hgb 11.2 L (13.7-17.5) gm/L Hct 34.8 L (40.1-51.0) % MCV 95.6 H (79.0-92.2) fl MCH 30.8 (25.7-32.2) pg MCHC 32.2 (32.2-35.5) g/dl RDW Std Deviation 43.7 (35.1-43.9) fL Plt Count 222 (163-337) K/mm3 MPV 9.1 L (9.4-12.3) fl Neutrophils % (Manual) 71 H (40-60) % Band Neutrophils % 0 (0-10) % Lymphocytes % (Manual) 9 L (20-40) % Atypical Lymphs % 0 % Monocytes % (Manual) 14 H (2-10) % Eosinophils % (Manual) 6 (0.8-7.0) % Basophils % (Manual) 0 L (0.2-1.2) Platelet Estimate Adequate Microcytosis 1+ slight RBC Morph Comment Abnormal Departure - Departure Time of Disposition: 10:18 Disposition: Home, Self-Care 01 Condition: Fair Clinical Impression: Cellulitis Qualifiers: Site of cellulitis: extremity Site of cellulitis of extremity: lower extremity Laterality: right Qualified Code(s): L03.115 - Cellulitis of right lower limb - Discharge Information Prescriptions: Cephalexin [Keflex] 500 mg PO TID #20 capsule Instructions: Cellulitis, Adult Referrals: Ventura Morton MD [Primary Care Provider] - Forms: ED Department Discharge Additional Instructions: Increase cephalexin to 500 mg 3 times daily, continue that for another week, see Dr. Laboy in about 5-6 days for recheck, call for appointment Wednesday., Return to ED if symptoms worsening in any way. - My Orders Last 24 Hours: My Active Orders 06/18/18 09:16 Knee Min 4V Rt [CR] Stat - Assessment/Plan Last 24 Hours: My Active Orders 06/18/18 09:16 Knee Min 4V Rt [CR] Stat
--- NOTE | 2018-06-19 18:27 | CR ---
Right knee: Four views of the right knee were obtained. Comparison: No prior knee exam. Dystrophic calcifications are noted within the upper anterior hills. There appears to be soft tissue swelling anteriorly overlying the patellar tendon and anterior tibial tuberosity. Medial and lateral joint spaces are maintained. Very minimal joint effusion is seen. No acute fracture or dislocation is seen. Vascular calcification is present. Impression: 1. Soft tissue swelling. 2. Very minimal joint effusion. 3. Soft tissue calcifications believed to be incidental. No acute bony abnormality is seen. Diagnostic code #2
== END 2018-06-18 10:37 | disposition home or self-care (01) ==
LOC: JD.ED 08:30
DX: L03.115 Cellulitis of right lower limb (principal); E11.9 Type 2 diabetes mellitus without complications; I11.0 Hypertensive heart disease with heart failure; I50.9 Heart failure, unspecified; J44.9 Chronic obstructive pulmonary disease, unspecified; K21.9 Gastro-esophageal reflux disease without esophagitis; M19.90 Unspecified osteoarthritis, unspecified site; Z79.899 Other long term (current) drug therapy; Z79.84 Long term (current) use of oral hypoglycemic drugs; Z79.82 Long term (current) use of aspirin; Z88.1 Allergy status to other antibiotic agents; Z88.2 Allergy status to sulfonamides
CPT/HCPCS: 36415; 73564-26-RT; 73564-RT; 85007; 85027; 99284

== ENCOUNTER 2018-11-08 22:38 | Emergency (ER) | payer MEDICARE, BC ==
[2018-11-09] MEDS ORDERED: Levofloxacin 750 MG Tab PO STA (02:45)
--- NOTE | 2018-11-09 02:55 | EDM.PDOC ---
ED HPI GENERAL MEDICAL PROBLEM - General Chief Complaint: Fever Stated Complaint: FEVER SPIKE HOSPICE REFERED TO COME IN Time Seen by Provider: 11/09/18 01:44 Source of Information: Reports: Patient, Family (Daughter, son-in-law), RN Notes Reviewed History Limitations: Reports: No Limitations - History of Present Illness INITIAL COMMENTS - FREE TEXT/NARRATIVE: The patient's daughter states that the patient has stage IV pancreatic cancer, and that he is in palliative care, but not hospice care. She states that he developed a fever up to 102.9 at 22:00, and that he was uncomfortable with a fever. He was given Tylenol 1 g at that time, which has successfully reduced his fever. Due to the spread of the cancer, the patient's left ureter became obstructed, therefore the patient underwent a ureteral stent, which did not succeed. The stent is scheduled for removal on 11/22/2018. He subsequently underwent a left nephrostomy tube, which has been functioning properly. He still urinates through his bladder/penis from urine made from his right kidney. The patient's daughter states that he has had increased cloudiness from the urine from his left nephrostomy tube. No recent cough, nausea, vomiting, constipation, diarrhea , or dysuria. The patient's PCP is Dr. Ventura Laboy. - Related Data Allergies Allergy/AdvReac Type Severity Reaction Status Date / Time doxycycline Allergy Edema Verified 06/18/18 08:41 Sulfa (Sulfonamide Allergy Rash Verified 06/18/18 08:41 Antibiotics) Home Meds: Home Meds Allopurinol [Zyloprim] 100 mg PO DAILY 03/05/17 [History] Aspirin 81 mg PO DAILY 03/05/17 [History] Calcium Citrate/Vitamin D3 [Citracal + D Maximum [place]] 2 tab PO DAILY [History] Ezetimibe [Zetia] 10 mg PO BEDTIME 03/05/17 [History] FLUoxetine [PROzac] 20 mg PO DAILY 03/05/17 [History] Furosemide [Lasix] 10 mg PO DAILY 03/05/17 [History] Krill Oil 500 mg PO DAILY 03/05/17 [History] Multivitamin [Zoo Chews] 1 tab PO DAILY 03/05/17 [History] Simvastatin [Zocor] 40 mg PO BEDTIME 03/05/17 [History] Tamsulosin HCl [Flomax] 0.4 mg PO ASDIRECTED 03/05/17 [History] Tiotropium [Spiriva HandiHaler] 2 puff INH DAILY 03/05/17 [History] Diltiazem HCl [Cardizem Cd] 300 mg PO DAILY 11/24/17 [History] Valsartan 40 mg PO DAILY 11/24/17 [History] Acetaminophen/HYDROcodone [[place] 325-5 MG] 1 tab PO Q6H PRN 02/09/18 [History] Cephalexin [Keflex] 500 mg PO TID #20 capsule 06/18/18 [Rx] Glimepiride [Amaryl] 2 mg PO PCDINNER 06/18/18 [History] Latanoprost/Pf [Latanoprost 0.005% Eye Drop] 1 drop EYEBOTH BEDTIME 06/18/18 [ History] Pantoprazole [ProTONIX] 40 mg PO DAILY 06/18/18 [History] Pioglitazone HCl [Actos] 0.5 mg PO ACBREAKFAST 06/18/18 [History] Ubidecarenone [Co Q-10] 50 mg PO DAILY 06/18/18 [History] levoFLOXacin [Levaquin] 1 tab PO Q48H #4 tab 11/09/18 [Rx] Past Medical History HEENT History: Reports: Glaucoma, Hard of Hearing, Impaired Vision Other HEENT History: has glasses, hearing aids, dentures, permanent contact Cardiovascular History: Reports: Heart Failure, Hypertension, Other (See Below) (Mitral valve regurgitation. Mitral valve stenosis. Aortic stenosis.) Respiratory History: Reports: COPD, Sleep Apnea Gastrointestinal History: Reports: GERD Genitourinary History: Reports: BPH, Chronic Renal Insuffiency Musculoskeletal History: Reports: Gout, Osteoarthritis, Other (See Below) (left bicep tendon rupture) Psychiatric History: Reports: Other (See Below) (Insomnia) Endocrine/Metabolic History: Reports: Diabetes, Type II Oncologic (Cancer) History: Reports: Pancreatic (Stave IV) - Past Surgical History HEENT Surgical History: Reports: Cataract Surgery, Naso-Sinus Surgery GI Surgical History: Reports: Colonoscopy Male Surgical History: Reports: Ureteral Stent (left), Other (See Below) ( Left nephrostomy tube) Neurological Surgical History: Reports: C-Spine (C2-C6 fusion), Lumbar Spine (L1 -L5 laminectomy, L2-L5 fusion) Musculoskeletal Surgical History: Reports: Hip Replacement (right) Social & Family History - Family History Family Medical History: Noncontributory - Tobacco Use Smoking Status *Q: Former Smoker Used Tobacco, but Quit: Yes Month/Year Tobacco Last Used: 1971 - Caffeine Use Caffeine Use: Reports: Coffee, Tea - Recreational Drug Use Recreational Drug Use: No ED ROS GENERAL - Review of Systems Review Of Systems: ROS reveals no pertinent complaints other than HPI. ED EXAM, GENERAL - Physical Exam Exam: See Below Exam Limited By: No Limitations General Appearance: Alert, WD/WN, No Apparent Distress, Other (Very jaundiced) Eye Exam: Bilateral Eye: EOMI, Other (Scleral icterus) Ears: Normal External Exam, Hearing Grossly Normal Nose: Normal Inspection Throat/Mouth: Normal Inspection, Normal Lips, Normal Voice, No Airway Compromise Head: Atraumatic, Normocephalic Neck: Normal Inspection, Full Range of Motion Respiratory/Chest: No Respiratory Distress, Lungs Clear, Normal Breath Sounds, No Accessory Muscle Use Cardiovascular: Normal Peripheral Pulses, Regular Rate, Rhythm, No Gallop, No JVD, No Murmur, No Rub Peripheral Pulses: 4+: Radial (L), Radial (R) GI/Abdominal: Normal Bowel Sounds, Soft, Non-Tender, No Organomegaly, No Distention, No Abnormal Bruit, No Mass (Male) Exam: Deferred Rectal (Males) Exam: Deferred Back Exam: Full Range of Motion, Other (Nephrostomy tube from the left flank - dressing was not removed) Extremities: Normal Range of Motion, Normal Capillary Refill, Other (1-2+ pretibial pitting edema bilaterally) Neurological: Alert, Oriented, Normal Cognition, No Motor/Sensory Deficits Psychiatric: Normal Affect Skin Exam: Warm, Dry, Intact, No Rash, Jaundice Course - Vital Signs Last Recorded V/S: Last Vital Signs Temp 36.7 C 11/08/18 23:04 Pulse 104 H 11/08/18 23:04 Resp 16 11/08/18 23:04 BP 90/60 11/08/18 23:04 Pulse Ox 93 L 11/08/18 23:04 - Orders/Labs/Meds Labs: Laboratory Tests 11/09/18 11/09/18 11/09/18 Range/Units 00:26 00:45 00:45 WBC 13.42 H (4.23-9.07) K/mm3 RBC 2.63 L (4.63-6.08) M/mm3 Hgb 8.4 L D (13.7-17.5) gm/L Hct 24.8 L (40.1-51.0) % MCV 94.3 H (79.0-92.2) fl MCH 31.9 (25.7-32.2) pg MCHC 33.9 (32.2-35.5) g/dl RDW Std Deviation 61.8 H (35.1-43.9) fL Plt Count 187 (163-337) K/mm3 MPV 10.7 (9.4-12.3) fl Neutrophils % (Manual) 86 H (40-60) % Band Neutrophils % 6 (0-10) % Lymphocytes % (Manual) 3 L (20-40) % Atypical Lymphs % 0 % Monocytes % (Manual) 5 (2-10) % Eosinophils % (Manual) 0 L (0.8-7.0) % Basophils % (Manual) 0 L (0.2-1.2) Toxic Granulation 1+ slight Platelet Estimate Adequate Plt Morphology Comment Normal Anisocytosis 2+ moderate Target Cells 2+ moderate RBC Morph Comment Not Reportable Sodium 117 L* D (136-145) mEq/L Potassium 4.3 (3.5-5.1) mEq/L Chloride 85 L D (98-107) mEq/L Carbon Dioxide 17 L (21-32) mEq/L Anion Gap 19.3 H (5-15) BUN 63 H (7-18) mg/dL Creatinine 3.9 H (0.7-1.3) mg/dL Est Cr Clr Drug Dosing 14.59 mL/min Estimated GFR (MDRD) 15 (>60) mL/min BUN/Creatinine Ratio 16.2 (14-18) Glucose 168 H (83-115) mg/dL Lactic Acid Calcium 8.9 (8.5-10.1) mg/dL Total Bilirubin 29.7 H* (0.2-1.0) mg/dL AST 161 H (15-37) U/L ALT 167 H (16-63) U/L Alkaline Phosphatase 1943 H (46-116) U/L C-Reactive Protein 21.1 H* (<1.0) mg/dL Total Protein 5.6 L (6.4-8.2) g/dl Albumin 2.1 L (3.4-5.0) g/dl Globulin 3.5 gm/dL Albumin/Globulin Ratio 0.6 L (1-2) Urine Color Brown H (Yellow) Urine Appearance Turbid H (Clear) Urine pH 6.0 (5.0-8.0) Ur Specific [place] 1.020 (1.005-1.030) Urine Protein 3+ H (Negative) Urine Glucose (UA) Trace H (Negative) Urine Ketones Trace H (Negative) Urine Occult Blood 3+ H (Negative) Urine Nitrite Negative (Negative) Urine Bilirubin 3+ H (Negative) Urine Urobilinogen 1.0 (0.2-1.0) Ur Leukocyte Esterase 3+ H (Negative) Urine RBC 5-10 H (0-5) /hpf Urine WBC Too numerous to cnt H (0-5) /hpf Urine WBC Clumps Many (NOT SEEN) /hpf Ur Transition Epith Cell 0-5 (0-5) Amorphous Sediment Few H (NOT SEEN) /hpf Urine Bacteria Many H (FEW) /hpf Hyaline Casts 0-5 (0-5) /lpf Urine Mucus Rare (FEW) /hpf Urinalysis Comment 11/09/18 Range/Units 00:45 WBC (4.23-9.07) K/mm3 RBC (4.63-6.08) M/mm3 Hgb (13.7-17.5) gm/L Hct (40.1-51.0) % MCV (79.0-92.2) fl MCH (25.7-32.2) pg MCHC (32.2-35.5) g/dl RDW Std Deviation (35.1-43.9) fL Plt Count (163-337) K/mm3 MPV (9.4-12.3) fl Neutrophils % (Manual) (40-60) % Band Neutrophils % (0-10) % Lymphocytes % (Manual) (20-40) % Atypical Lymphs % % Monocytes % (Manual) (2-10) % Eosinophils % (Manual) (0.8-7.0) % Basophils % (Manual) (0.2-1.2) Toxic Granulation Platelet Estimate Plt Morphology Comment Anisocytosis Target Cells RBC Morph Comment Sodium (136-145) mEq/L Potassium (3.5-5.1) mEq/L Chloride (98-107) mEq/L Carbon Dioxide (21-32) mEq/L Anion Gap (5-15) BUN (7-18) mg/dL Creatinine (0.7-1.3) mg/dL Est Cr Clr Drug Dosing mL/min Estimated GFR (MDRD) (>60) mL/min BUN/Creatinine Ratio (14-18) Glucose (83-115) mg/dL Lactic Acid TNP Calcium (8.5-10.1) mg/dL Total Bilirubin (0.2-1.0) mg/dL AST (15-37) U/L ALT (16-63) U/L Alkaline Phosphatase (46-116) U/L C-Reactive Protein (<1.0) mg/dL Total Protein (6.4-8.2) g/dl Albumin (3.4-5.0) g/dl Globulin gm/dL Albumin/Globulin Ratio (1-2) Urine Color (Yellow) Urine Appearance (Clear) Urine pH (5.0-8.0) Ur Specific [place] (1.005-1.030) Urine Protein (Negative) Urine Glucose (UA) (Negative) Urine Ketones (Negative) Urine Occult Blood (Negative) Urine Nitrite (Negative) Urine Bilirubin (Negative) Urine Urobilinogen (0.2-1.0) Ur Leukocyte Esterase (Negative) Urine RBC (0-5) /hpf Urine WBC (0-5) /hpf Urine WBC Clumps (NOT SEEN) /hpf Ur Transition Epith Cell (0-5) Amorphous Sediment (NOT SEEN) /hpf Urine Bacteria (FEW) /hpf Hyaline Casts (0-5) /lpf Urine Mucus (FEW) /hpf Urinalysis Comment Meds: Medications Discontinued Medications Generic Name Dose Route Start Last Admin Trade Name Freq PRN Reason Stop Dose Admin Levofloxacin 750 mg 11/09/18 02:45 11/09/18 02:53 Levaquin PO 11/09/18 02:46 750 mg ONETIME STA Administration - Re-Assessments/Exams Free Text/Narrative Re-Assessment/Exam: 11/09/18 02:46 The patient's CBC is remarkable for a WBC count elevated at 13.42 with 6% bandemia. His H/H are depressed at 8.4/24.8. The remainder of the CBC is unremarkable. His CMP is remarkable for a sodium depressed at 117, with a chloride depressed at 85. His bicarbonate is depressed at 17, with an anion gap of 19.3. His BUN/ Cr are elevated at 63/3.9, with an estimated CrCl of 14.59 and GFR of 15. His blood glucose is elevated at 168. His total bilirubin is elevated at 29.7. His AST/ALT are elevated at 161/167. His alkaline phosphatase is elevated at 1943. His CRP is elevated at 21.1. His urinalysis, obtained from the left nephrostomy tube, is remarkable for 3+ occult blood with 5-10 RBCs, 3+ leukocyte esterase with too numerous to count WBCs, and nitrate negative with many bacteria. Based on the patient's history, physical exam, and ED tests, the patient is likely suffering from left-sided pyelonephritis. Current guidelines recommend treatment with renal-dosed Levaquin 750 mg now, then 500 mg every 48 hours for 5 to 7 days. Because Levaquin is 100% bioavailable, and the patient is able to take oral medications, there is no difference between giving him oral versus IV Levaquin. The patient may therefore be discharged home, which is what the family prefers. With respect to the patient's renal failure, anion gap metabolic acidosis, and severe hyponatremia, the family is aware that these are incidental findings related to his underlying illness, and are not painful, therefore, because the patient is under palliative care, we will not address them. I recommended to the patient's family that either they or the palliative care nurse contact the office of Dr. Laboy this coming 11/11/2018, to check on the urine culture results. Departure - Departure Time of Disposition: 02:55 Disposition: Home, Self-Care 01 Condition: Poor Clinical Impression: Pyelonephritis of left kidney, Pancreatic cancer, Palliative care patient - Discharge Information *PRESCRIPTION DRUG MONITORING PROGRAM REVIEWED*: Not Applicable *COPY OF PRESCRIPTION DRUG MONITORING REPORT IN PATIENT RANDY: Not Applicable Prescriptions: levoFLOXacin [Levaquin] 1 tab PO Q48H #4 tab Instructions: Pyelonephritis, Adult, [id number] Referrals: Ventura Morton MD [Primary Care Provider] - Forms: ED Department Discharge Additional Instructions: Mr. Colunga was seen in the emergency room for a fever up to 102.9 at home. Workup in the ER included blood work, 2 sets of blood cultures, and a urinalysis from the left nephrostomy tube. His workup found a urinary tract infection, and based on his symptoms, he is likely suffering from left-sided pyelonephritis (kidney infection). As discussed, several other lab abnormalities were found, including a low sodium level, metabolic acidosis, renal failure, a high total bilirubin, and high liver enzymes. Because of his palliative care status, these are not being addressed. He has been started on the antibiotic Levaquin, and a prescription for Levaquin has been sent to the [facility] located in the [place] store. Give one tablet of Levaquin on the evenings of , 11/10/2018, , 11/14/2018, and 11/16/2018. You may continue to give Tylenol as needed for discomfort of fever. Contact the office of Dr. Laboy on Wednesday afternoon, 11/03/2018, to check on the urine culture results. If any other problems, please do not hesitate to return Mr. Colunga to the ER.
== END 2018-11-09 03:09 | disposition home or self-care (01) ==
LOC: JD.ED 22:38
DX: N12 Tubulo-interstitial nephritis, not specified as acute or chronic (principal); C25.9 Malignant neoplasm of pancreas, unspecified; I13.0 Hypertensive heart and chronic kidney disease with heart failure and stage 1 through stage 4 chronic kidney disease, or unspecified chronic kidney disease; I50.9 Heart failure, unspecified; N18.9 Chronic kidney disease, unspecified; E11.22 Type 2 diabetes mellitus with diabetic chronic kidney disease; J44.9 Chronic obstructive pulmonary disease, unspecified; Z87.891 Personal history of nicotine dependence; Z51.5 Encounter for palliative care; Z88.1 Allergy status to other antibiotic agents; Z88.2 Allergy status to sulfonamides; Z79.82 Long term (current) use of aspirin; Z79.899 Other long term (current) drug therapy
CPT/HCPCS: 36415; 80053; 81001; 85007; 85027; 86140; 87040; 99284; A9270